=== PATIENT | female | born 1965 | race Caucasian/White ===

== ENCOUNTER 2019-09-02 08:55 | Inpatient (IN) | payer BC ==
[2019-09-02] MEDS: Lactated Ringers 1,000 ML IV SCH ×2 (08:40→14:07)
[~2019-09-02 08:55] MED LIST: Bisacodyl 5 MG Tab PO PRN; Famotidine 20 MG Tab PO SCH; Lactated Ringers 1,000 ML IV SCH; Lidocaine 1%/Sod Bicarbonate in NS 8.4% 1 ML Syringe IDERM PRN; Magnesium Hydroxide 400 MG/5 ML Susp 30 ML Cup PO PRN; Morphine 2 MG/ML SYRINGE IVPUSH PRN; Naloxone 0.4 MG/ML SDV IVPUSH PRN; Ondansetron 4 MG/2 ML SDV IVPUSH PRN; Sennosides 8.6 MG Tab PO PRN; Sodium Chloride 0.9% 10 ML Syringe FLUSH PRN
[2019-09-02] MEDS ORDERED: Morphine Sulfate 8 MG, EPINEPHrine 0.3 MG, Cefuroxime 750 MG, Ketorolac 30 MG, Sodium C... ONE ×5 (09:00)
--- NOTE | 2019-09-02 09:05 | PCM.CONS ---
H&P History of Present Illness - General Date of Service: 09/02/19 Admit Problem/Dx: Admission Diagnosis/Problem Admission Diagnosis/Problem Osteoarthritis of knee Source of Information: Patient, Old Records, Provider, RN, RN Notes Reviewed History Limitations: Reports: No Limitations - History of Present Illness Initial Comments - Free Text/Narative: Malorie Ulloa is a 53 yo female patient of Dr. Cho who is post-operative day 0 of right TKA. Hospital medicine was consulted for post-operative medical care of the following listed medical conditions. At this time she is resting comfortably in bed. Pain is controlled. She denies any chest pain, shortness of breath, palpitations, or vomiting. She is having mild nausea and nursing is working on this. She carries a history of: Depression, GERD, IBS, Endometriosis, HLD, HTN, Headaches, Polyarthralgia, Pre-Diabetic, Right pulmonary nodule, Vitamin D Deficiency, Positive MRSA screen, Chronic neck pain, RA, Obesity. She is a former smoker. She is a full code. Her primary care provider is Dr. Holder. - Related Data Allergies/Adverse Reactions: Allergies Allergy/AdvReac Type Severity Reaction Status Date / Time chlorhexidine AdvReac Rash Verified 09/02/19 09:37 iodine AdvReac Rash Verified 09/02/19 09:37 povidone-iodine AdvReac Rash Verified 09/02/19 09:37 [From Betadine] soap [From Betadine] AdvReac Rash Verified 09/02/19 09:37 Home Medications: Home Meds Cetirizine [ZyrTEC] 10 mg PO DAILY 06/14/15 [History] Cinnamon Bark [Cinnamon] 500 mg PO DAILY 06/14/15 [History] Cyclobenzaprine [Flexeril] 10 mg PO TID PRN 06/14/15 [History] FLUoxetine [PROzac] 20 mg PO DAILY 06/14/15 [History] Fluticasone Propionate [Flonase] 1 sprays NASBOTH DAILY 06/14/15 [History] Lisinopril [Prinivil] 10 mg PO DAILY 06/14/15 [History] [place]-3 Fatty Acids/Fish Oil [Cvs Fish Oil 1,000 mg Softgel] 1 each PO DAILY 06/14/15 [History] Cholecalciferol (Vitamin D3) [Vitamin D3] 2,000 unit PO DAILY 08/30/19 [History] Glucosam/Chondr/Collagn/Hyalur [Glucosamine & Chondroitin Cap] 1 cap PO DAILY 08/30/19 [History] Mupirocin Oint [Bactroban Oint] 1 dose TOP ASDIRECTED 08/30/19 [History] Pantoprazole Sodium [Protonix] 40 mg PO DAILY 08/30/19 [History] Turmeric Root Extract [Turmeric Curcumin] 1,000 mg PO DAILY 08/30/19 [History] Vitamin E 400 unit PO DAILY 08/30/19 [History] amLODIPine Besylate [Amlodipine Besylate] 5 mg PO BID 08/30/19 [History] cloNIDine HCL [Clonidine HCl] 0.5 mg PO DAILY 08/30/19 [History] metFORMIN [Glucophage] 500 mg PO BID 08/30/19 [History] traMADol [Ultram] 50 mg PO BEDTIME PRN 08/30/19 [History] Past Medical History HEENT History: Reports: Allergic Rhinitis, Impaired Vision, Sinusitis Cardiovascular History: Reports: High Cholesterol, Hypertension Respiratory History: Reports: SOB, Other (See Below) Other Respiratory History: right pulmonary nodule Gastrointestinal History: Reports: Colon Polyp, GERD, Irritable Bowel Syndrome Genitourinary History: Reports: Other (See Below) Other Genitourinary History: nephrolithiasis 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: , 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 (See Below) Other OB/BYN History: hot flashes, endometriosis, endometrial ablation Musculoskeletal History: Reports: Neck Pain, Chronic, RA, Other (See Below) Other Musculoskeletal History: right knee pain, polyarthralgia, ACL sprain, right knee hemarthosis Neurological History: Reports: Headaches, Chronic, Other (See Below) Other Neuro History: cervical spine herniated disc Psychiatric History: Reports: Depression Endocrine/Metabolic History: Reports: Obesity/BMI 30+, Vitamin D Deficiency Hematologic History: Reports: None Immunologic History: Reports: None Oncologic (Cancer) History: Reports: None Dermatologic History: Reports: Other (See Below) Other Dermatologic History: lipoma - Infectious Disease History Infectious Disease History: Reports: MRSA - Past Surgical History Head Surgeries/Procedures: Reports: None HEENT Surgical History: Reports: Naso-Sinus Surgery, Oral Surgery Cardiovascular Surgical History: Reports: None Respiratory Surgical History: Reports: None GI Surgical History: Reports: Appendectomy, Cholecystectomy, Colonoscopy, EGD Female Surgical History: Reports: Oophorectomy, Other (See Below) Other Female Surgeries/Procedures: removal right ovarian cyst, uterine fibroid removal Endocrine Surgical History: Reports: None Neurological Surgical History: Reports: None Musculoskeletal Surgical History: Reports: None Oncologic Surgical History: Reports: None Dermatological Surgical History: Reports: None Social & Family History - Tobacco Use Smoking Status *Q: Former Smoker Used Tobacco, but Quit: Yes Month/Year Tobacco Last Used: 2006 - Caffeine Use Caffeine Use: Reports: Coffee - Recreational Drug Use Recreational Drug Use: No H&P Review of Systems - Review of Systems: Review Of Systems: See Below General: Reports: No Symptoms. Denies: Fever, Chills HEENT: Reports: No Symptoms. Denies: Headaches, Sore Throat Pulmonary: Reports: No Symptoms. Denies: Shortness of Breath, Wheezing, Pleuritic Chest Pain, Cough, Sputum Cardiovascular: Reports: No Symptoms. Denies: Chest Pain, Palpitations, Dyspnea on Exertion Gastrointestinal: Reports: Nausea. Denies: Abdominal Pain, Constipation, Diarrhea, Vomiting Genitourinary: Reports: No Symptoms. Denies: Pain Musculoskeletal: Reports: Leg Pain Skin: Reports: No Symptoms. Denies: Cyanosis Psychiatric: Reports: No Symptoms. Denies: Confusion Neurological: Reports: Numbness, Tingling, Difficulty Walking, Gait Disturbance Hematologic/Lymphatic: Reports: No Symptoms, Easy Bleeding Immunologic: Reports: No Symptoms Exam - Exam Exam: See Below - Exam Quality Assessment: DVT Prophylaxis General: Alert, Oriented, Cooperative HEENT: Conjunctiva Clear, EACs Clear, Hearing Intact, Mucosa Moist & [place], Nares Patent, Posterior Pharynx Clear Neck: Supple, Trachea Midline Lungs: Clear to Auscultation, Normal Respiratory Effort Cardiovascular: Regular Rate, Regular Rhythm GI/Abdominal Exam: Normal Bowel Sounds, Soft, Non-Tender, No Distention (Female) Exam: Deferred Rectal (Female) Exam: Deferred Back Exam: Normal Inspection, Full Range of Motion Extremities: Normal Capillary Refill, Leg Pain, Limited Range of Motion, Other (Bandage in place on right leg. Bandage is dry and intact. Cooling pack in place. ) Peripheral Pulses: 2+: Radial (L), Radial (R), Dorsalis Pedis (L), Dorsalis Pedis (R) Skin: Warm, Dry, Intact Neurological: Cranial Nerves Intact (Grossly ) Neuro Extensive - Mental Status: Alert, Oriented x3, Normal Mood/Affect Sepsis Event Note - Focused Exam Date Exam was Performed: 09/02/19 Time Exam was Performed: 14:28 Consult PN Assessment/Plan POD#: 0 Procedures: Procedures ANTINUCLEAR ANTIBODIES (08/19/19) ASSAY GLUCOSE BLOOD QUANT (07/01/17) ASSAY OF BLOOD/URIC ACID (08/19/19) ASSAY OF FREE THYROXINE (06/22/17) ASSAY OF MAGNESIUM (06/22/17) ASSAY OF TROPONIN QUANT (06/22/17) ASSAY THYROID STIM HORMONE (07/14/18) BREAST TOMOSYNTHESIS BI (03/20/19) C-REACTIVE PROTEIN (06/22/17) CARDIOVASCULAR STRESS TEST (08/27/19) CCP ANTIBODY (08/19/19) COMP SCREEN MAMMOGRAM ADD-ON (03/10/15) COMPLETE CBC W/AUTO DIFF WBC (08/19/19) COMPREHEN METABOLIC PANEL (08/19/19) CT THORAX W/DYE (03/20/14) CULTURE SCREEN ONLY (12/23/15) EMERGENCY DEPT VISIT (06/14/15) GLYCOSYLATED HEMOGLOBIN TEST (08/10/19) HEPATITIS C AB TEST (09/08/16) HT MUSCLE IMAGE SPECT MULT (08/27/19) KNEE ARTHROSCOPY/SURGERY (08/04/15) KNEE ARTHROSCOPY/SURGERY (08/04/15) LIPID PANEL (01/19/19) METABOLIC PANEL TOTAL CA (08/10/19) MR-STAPH DNA AMP PROBE (07/29/15) MRI JNT OF LWR EXTRE W/O DYE (06/15/15) PROTHROMBIN TIME (08/19/19) RHEUMATOID FACTOR TEST QUAL (08/19/19) ROUTINE VENIPUNCTURE (08/10/19) SCR MAMMO BI INCL CAD (03/20/19) STREP A AG IA (12/23/15) THROMBOPLASTIN TIME PARTIAL (08/19/19) TTE W/DOPPLER COMPLETE (06/28/17) UR ALBUMIN SEMIQUANTITATIVE (11/28/17) URINALYSIS AUTO W/O SCOPE (08/19/19) URINALYSIS AUTO W/SCOPE (05/23/14) VITAMIN D 25 HYDROXY (08/10/19) X-RAY EXAM CHEST 2 VIEWS (08/19/19) X-RAY EXAM KNEE 4 OR MORE (06/14/15) (1) S/P total knee arthroplasty SNOMED Code(s): 7832645649393, 812477547, 9917731897960 Code(s): Z96.659 - PRESENCE OF UNSPECIFIED ARTIFICIAL KNEE JOINT Current Visit: Yes (2) Osteoarthritis SNOMED Code(s): 451162054 Code(s): M19.90 - UNSPECIFIED OSTEOARTHRITIS, UNSPECIFIED SITE Current Visit: Yes (3) Pre-diabetes SNOMED Code(s): 508206597 Code(s): R73.03 - PREDIABETES Current Visit: Yes (4) Chronic neck pain SNOMED Code(s): 9160566182816 Code(s): M54.2 - CERVICALGIA; G89.29 - OTHER CHRONIC PAIN Current Visit: Yes (5) Depression SNOMED Code(s): 76523832 Code(s): F32.9 - MAJOR DEPRESSIVE DISORDER, SINGLE EPISODE, UNSPECIFIED Current Visit: Yes (6) HLD (hyperlipidemia) SNOMED Code(s): 63516733 Code(s): E78.5 - HYPERLIPIDEMIA, UNSPECIFIED Current Visit: Yes (7) HTN (hypertension) SNOMED Code(s): 62920115 Code(s): I10 - ESSENTIAL (PRIMARY) HYPERTENSION Current Visit: Yes (8) Pulmonary nodule, right SNOMED Code(s): 721763966 Code(s): R91.1 - SOLITARY PULMONARY NODULE Current Visit: Yes (9) GERD (gastroesophageal reflux disease) SNOMED Code(s): 113712684 Code(s): K21.9 - GASTRO-ESOPHAGEAL REFLUX DISEASE WITHOUT ESOPHAGITIS Current Visit: Yes (10) IBS (irritable bowel syndrome) SNOMED Code(s): 59355832 Code(s): K58.9 - IRRITABLE BOWEL SYNDROME WITHOUT DIARRHEA Current Visit: Yes (11) Endometriosis SNOMED Code(s): 695809871 Code(s): N80.9 - ENDOMETRIOSIS, UNSPECIFIED Current Visit: Yes (12) Rheumatoid arthritis SNOMED Code(s): 58255261 Code(s): M06.9 - RHEUMATOID ARTHRITIS, UNSPECIFIED Current Visit: Yes (13) Polyarthralgia SNOMED Code(s): 98503140 Code(s): M25.50 - PAIN IN UNSPECIFIED JOINT Current Visit: Yes (14) Chronic headaches SNOMED Code(s): 344031472 Code(s): R51 - HEADACHE Current Visit: Yes (15) Obesity SNOMED Code(s): 135028014, 463078654 Code(s): E66.9 - OBESITY, UNSPECIFIED Current Visit: Yes (16) Vitamin D deficiency SNOMED Code(s): 03791045 Code(s): E55.9 - VITAMIN D DEFICIENCY, UNSPECIFIED Current Visit: Yes (17) Positive result for methicillin resistant Staphylococcus aureus (MRSA) screening SNOMED Code(s): 781188633 Code(s): Z22.322 - CARRIER OR SUSPECTED CARRIER OF METHICILLIN RESIS STAPH Priority: High Current Visit: Yes Problem List Initiated/Reviewed/Updated: Yes Plan: I/P: Acute: S/P right total knee arthroplasty - post-operative day 0 -DVT prophylaxis and pain management per primary care team -PT/OT -IS/RT -Monitor oxygen saturation -Titrate oxygen as needed -Home medications reviewed -Vital signs stable -Monitor labs -Pre-operative Hgb was 14.0 -Pre-operative GFR was >60 -Pre-operative BUN was 20 -Pre-operative A1C was 6.2% -Pre-operative echo showed EF of >70% Osteoarthritis of right knee -Pain management per primary care team Positive MRSA screen -Contact precautions Chronic: Depression GERD IBS Endometriosis HLD HTN Headaches Polyarthralgia Pre-Diabetic Right pulmonary nodule Vitamin D Deficiency Positive MRSA screen Chronic neck pain RA Obesity Plan: CM for discharge planning GI prophylaxis Home medications as indicated Other orders as listed above Routine AM labs She is a full code. Her PCP is Dr. Holder Thank you for allowing us to participate in the care of this patient!! Requesting Provider: Dr. Cho Date Consult Requested: 09/02/19 Patient History Reviewed: Yes Admission H&P Reviewed: Yes Notified Requestor: Yes
[2019-09-02] MEDS ORDERED: Vancomycin 1 GM SDV ONE (09:12)
[2019-09-02] MEDS ORDERED: Triamcinolone Acetonide 40 MG/ML 1 ML MDV ONE (09:12)
[2019-09-02] MEDS ORDERED: ceFAZolin 1 GM Vial ONE (09:12)
--- NOTE | 2019-09-02 09:43 | PCM.PREANE ---
Preanesthetic Assessment - Procedure Proposed Procedure: right total knee - Anesthesia/Transfusion/Family Hx Anesthesia History: Prior Anesthesia Without Reaction Family History of Anesthesia Reaction: No Transfusion History: No Prior Transfusion(s) - Review of Systems General: No Symptoms Pulmonary: No Symptoms Cardiovascular: No Symptoms Gastrointestinal: No Symptoms Neurological: No Symptoms Other: Reports: Diabetes (pre), Neck Pain (arthritis), Depression - Physical Assessment NPO Status Date: 09/01/19 NPO Status Time: 20:00 Vital Signs: Last Vital Signs Temp 98.3 F 09/02/19 08:59 Pulse 87 09/02/19 08:59 Resp 20 09/02/19 08:59 BP 136/86 09/02/19 08:59 Pulse Ox 95 09/02/19 08:59 Height: 5 ft 4 in Weight: 83.915 kg ASA Class: 2 Mental Status: Alert & Oriented x3 Airway Class: Mallampati = 1 Dentition: Reports: Normal Dentition, Missing Tooth/Teeth (2) Thyro-Mental Finger Breadths: 3 Mouth Opening Finger Breadths: 3 ROM/Head Extension: Full Lungs: Clear to Auscultation, Normal Respiratory Effort - Lab Values: Laboratory Last Values COVID-19 PCR Not detected (NOT DETECT) 08/29/19 11:09 MRSA (PCR) Positive H 08/21/19 13:43 - Allergies Allergies/Adverse Reactions: Allergies Allergy/AdvReac Type Severity Reaction Status Date / Time chlorhexidine AdvReac Rash Verified 09/02/19 09:37 iodine AdvReac Rash Verified 09/02/19 09:37 povidone-iodine AdvReac Rash Verified 09/02/19 09:37 [From Betadine] soap [From Betadine] AdvReac Rash Verified 09/02/19 09:37 - Blood Blood Available: No - Acknowledgements Anesthesia Type Planned: Spinal Pt an Appropriate Candidate for the Planned Anesthesia: Yes Alternatives and Risks of Anesthesia Discussed w Pt/Guardian: Yes Pt/Guardian Understands and Agrees with Anesthesia Plan: Yes PreAnesthesia Questionnaire HEENT History: Reports: Allergic Rhinitis, Impaired Vision, Sinusitis Cardiovascular History: Reports: High Cholesterol, Hypertension Respiratory History: Reports: SOB, Other (See Below) Other Respiratory History: right pulmonary nodule Gastrointestinal History: Reports: Colon Polyp, GERD, Irritable Bowel Syndrome Genitourinary History: Reports: Other (See Below) Other Genitourinary History: nephrolithiasis 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: , 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 (See 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) Other OB/BYN History: hot flashes, endometriosis, endometrial ablation Musculoskeletal History: Reports: Neck Pain, Chronic, RA, Other (See Below) Other Musculoskeletal History: right knee pain, polyarthralgia, ACL sprain, right knee hemarthosis Neurological History: Reports: Headaches, Chronic, Other (See Below) Other Neuro History: cervical spine herniated disc Psychiatric History: Reports: Depression Endocrine/Metabolic History: Reports: Obesity/BMI 30+, Vitamin D Deficiency Hematologic History: Reports: None Immunologic History: Reports: None Oncologic (Cancer) History: Reports: None Dermatologic History: Reports: Other (See Below) Other Dermatologic History: lipoma - Infectious Disease History Infectious Disease History: Reports: MRSA - Past Surgical History Head Surgeries/Procedures: Reports: None HEENT Surgical History: Reports: Naso-Sinus Surgery, Oral Surgery Cardiovascular Surgical History: Reports: None Respiratory Surgical History: Reports: None GI Surgical History: Reports: Appendectomy, Cholecystectomy, Colonoscopy, EGD Female Surgical History: Reports: Oophorectomy, Other (See Below) Other Female Surgeries/Procedures: removal right ovarian cyst, uterine fibroid removal Endocrine Surgical History: Reports: None Neurological Surgical History: Reports: None Musculoskeletal Surgical History: Reports: None Oncologic Surgical History: Reports: None Dermatological Surgical History: Reports: None - SUBSTANCE USE Smoking Status *Q: Former Smoker Tobacco Use Within Last Twelve Months: No Second Hand Smoke Exposure: No Days Per Week of Alcohol Use: 0 Recreational Drug Use History: No - HOME MEDS Home Medications: Home Meds Cetirizine [ZyrTEC] 10 mg PO DAILY 06/14/15 [History] Cinnamon Bark [Cinnamon] 500 mg PO DAILY 06/14/15 [History] Cyclobenzaprine [Flexeril] 10 mg PO TID PRN 06/14/15 [History] FLUoxetine [PROzac] 20 mg PO DAILY 06/14/15 [History] Fluticasone Propionate [Flonase] 1 sprays NASBOTH DAILY 06/14/15 [History] Lisinopril [Prinivil] 10 mg PO DAILY 06/14/15 [History] [place]-3 Fatty Acids/Fish Oil [Cvs Fish Oil 1,000 mg Softgel] 1 each PO DAILY 06/14/15 [History] Cholecalciferol (Vitamin D3) [Vitamin D3] 2,000 unit PO DAILY 08/30/19 [History] Glucosam/Chondr/Collagn/Hyalur [Glucosamine & Chondroitin Cap] 1 cap PO DAILY 08/30/19 [History] Mupirocin Oint [Bactroban Oint] 1 dose TOP ASDIRECTED 08/30/19 [History] Pantoprazole Sodium [Protonix] 40 mg PO DAILY 08/30/19 [History] Turmeric Root Extract [Turmeric Curcumin] 1,000 mg PO DAILY 08/30/19 [History] Vitamin E 400 unit PO DAILY 08/30/19 [History] amLODIPine Besylate [Amlodipine Besylate] 5 mg PO BID 08/30/19 [History] cloNIDine HCL [Clonidine HCl] 0.05 mg PO DAILY 08/30/19 [History] metFORMIN [Glucophage] 500 mg PO BID 08/30/19 [History] norethindrone ac-eth estradioL [Norethind-Eth Estrad 0.5-2.5] 1 tab PO DAILY 08/30/19 [History] traMADol [Ultram] 50 mg PO BEDTIME PRN 08/30/19 [History] - CURRENT (IN HOUSE) MEDS Current Meds: Current Medications Aspirin (Ecotrin) 325 mg PO BID MARCELLE Bisacodyl (Dulcolax) 5 mg PO DAILY PRN PRN Reason: Constipation Cyclobenzaprine HCl (Flexeril) 10 mg PO TID PRN PRN Reason: Spasms Famotidine (Pepcid) 20 mg PO Q12H [facility] Lactated Ringer's (Ringers, Lactated) 1,000 mls @ 125 mls/hr IV ASDIRECTED [facility] Stop: 09/02/19 23:00 Cefazolin Sodium/Dextrose 2 gm (/ Premix) 50 mls @ 100 mls/hr IV Q8H [facility] Stop: 09/02/19 23:29 Ketorolac Tromethamine (Toradol) 15 mg IVPUSH Q6H PRN PRN Reason: Pain Lidocaine/Sodium Bicarbonate (Buffered Lidocaine 1% In Ns 8.4%) 0.25 ml IDERM ONETIME PRN PRN Reason: Prior to IV Start Stop: 09/02/19 18:00 Magnesium Hydroxide (Milk Of Magnesia) 30 ml PO BID PRN PRN Reason: Constipation Morphine Sulfate (Morphine) 2 mg IVPUSH Q2H PRN PRN Reason: Breakthrough Pain Naloxone HCl (Narcan) 0.1 mg IVPUSH Q5M PRN PRN Reason: Oversedation Ondansetron HCl (Zofran) 4 mg IVPUSH Q6H PRN PRN Reason: Nausea/Vomiting Oxycodone/Acetaminophen (Percocet 325-5 Mg) 1 - 2 tab PO Q4H PRN PRN Reason: Pain Senna (Senna) 8.6 mg PO BID PRN PRN Reason: Constipation Sodium Chloride (Saline Flush) 10 ml FLUSH ASDIRECTED PRN PRN Reason: Keep Vein Open Stop: 09/02/19 18:00 Discontinued Medications Bupivacaine HCl (Sensorcaine-Mpf 0.25%) Confirm Administered Dose 40 ml .ROUTE .STK-MED ONE Stop: 09/02/19 09:13 Cefazolin Sodium (Ancef) Confirm Administered Dose 2 gm .ROUTE .STK-MED ONE Stop: 09/02/19 09:13 Morphine Sulfate 8 mg/Epinephrine HCl 0.3 mg/Cefuroxime Sodium 750 mg/Ketorolac Tromethamine 30 mg/Sodium Chloride 7.9 ml 0 mg .XX ONETIME ONE Stop: 09/02/19 09:01 Famotidine (Pepcid) 20 mg PO Q12H MARCELLE Lactated Ringer's (Ringers, Lactated) 1,000 mls @ 125 mls/hr IV ASDIRECTED MARCELLE Stop: 08/26/19 23:00 Lidocaine/Sodium Bicarbonate (Buffered Lidocaine 1% In Ns 8.4%) 0.25 ml IDERM ONETIME PRN PRN Reason: Prior to IV Start Stop: 08/26/19 18:00 Sodium Chloride (Saline Flush) 10 ml FLUSH ASDIRECTED PRN PRN Reason: Keep Vein Open Stop: 08/26/19 18:00 Tranexamic Acid (Cyklokapron) Confirm Administered Dose 1,000 mg .ROUTE .STK-MED ONE Stop: 09/02/19 09:13 Triamcinolone Acetonide (Kenalog-40) Confirm Administered Dose 120 mg .ROUTE .STK-MED ONE Stop: 09/02/19 09:13 Vancomycin HCl (Vancomycin) Confirm Administered Dose 1 gm .ROUTE .STK-MED ONE Stop: 09/02/19 09:13
[2019-09-02] MEDS ORDERED: Pregabalin 75 MG Cap PO STA (09:51)
[2019-09-02] MEDS ORDERED: Acetaminophen 325 MG Tab PO STA (09:52)
[2019-09-02] MEDS ORDERED: diphenhydrAMINE 50 MG/ML SDV ONE (09:52)
[2019-09-02] MEDS ORDERED: oxyCODONE ER 10 MG TAB.ER PO STA (09:52)
[2019-09-02] MEDS ORDERED: Vancomycin 1.5 GM in Sodium Chloride 0.9% 500 ML IV ONE (10:00)
[2019-09-02] MEDS ORDERED: fentaNYL 100 MCG/2 ML SDV ONE (10:11)
[2019-09-02] MEDS ORDERED: Midazolam 1 MG/ML 2 ML SDV ONE (10:11)
[2019-09-02] MEDS ORDERED: Propofol 200 MG/20 ML SDV ONE ×2 (10:11→11:39)
[2019-09-02] MEDS ORDERED: Pregabalin 25 MG Cap PO ONE ×2 (10:15)
[2019-09-02] MEDS ORDERED: Lactated Ringers 1,000 ML ONE (10:33)
[2019-09-02] MEDS ORDERED: ePHEDrine Sulfate/0.9% NaCl/Pf 25 MG/5 ML SYRINGE IV ONE (10:45)
[2019-09-02] MEDS: ceFAZolin 1 GM Vial ONE ×2 (11:47→11:54)
[2019-09-02] MEDS ORDERED: fentaNYL 100 MCG/2 ML SDV IVPUSH PRN (11:50)
[2019-09-02] MEDS ORDERED: HYDROmorphone 0.5 MG/0.5 ML Syringe IVPUSH PRN (11:50)
[2019-09-02] MEDS: Bupivacaine 0.25% 10 ML SDV ONE ×2 (11:53→11:55)
[2019-09-02] MEDS ORDERED: Ropivacaine 0.5% 5 MG/ML 30 ML SDV ONE (12:30)
--- NOTE | 2019-09-02 12:57 | PCM.POSTAN ---
POST ANESTHESIA ASSESSMENT - MENTAL STATUS Mental Status: Alert, Oriented - VITAL SIGNS Vital Signs: Last Vital Signs Temp 97.2 F 09/02/19 12:25 Pulse 87 09/02/19 08:59 Resp 15 09/02/19 12:30 BP 119/63 09/02/19 12:30 Pulse Ox 97 09/02/19 12:30 - RESPIRATORY Respiratory Status: Respiratory Rate WNL, Airway Patent, O2 Saturation Stable - CARDIOVASCULAR CV Status: Pulse Rate WNL, Blood Pressure Stable - GASTROINTESTINAL GI Status: No Symptoms - PAIN Pain Score: 0 (post SAB) - POST OP HYDRATION Hydration Status: Adequate & Stable
--- NOTE | 2019-09-02 12:59 | PCM.PRNOTE ---
- Free Text/Narrative Note: Postoperative regional pain control requested by surgeon. Pre-op Dx: Right knee osteoarthritis. Post-op Rx: Total Right knee arthroplasty. Procedure: Right Adductor canal block with U/S guidance Requesting physician: Dr. Peter Villar Risks and benefits discussed with the patient preoperatively including infection, bleeding, incomplete or failed block, possible nerve damage, local anesthetic toxicity. Permit signed. Patient after spinal anesthesia post surgery in PACU, stable , alert and awake. Time out performed. Right mid-thigh was prepped with Chloraprep x 1 and allowed to dry. Under aseptic technique, the right femoral artery and sartorius muscle were identified under ultrasound prior to needle insertion. 4" Stimuplex needle #22 G was inserted under US guidance. Under direct visualization of needle tip the injection of 0.5% Ropivacaine with 1:200k epinephrine, total of 30 mls in di vided doses, maintaining negative aspiration was completed without problems. No local anesthetic toxicity was noted. Patient is awake, stable and tolerated the procedure well. Time: 12:39 - 12:48 Please see attached U/S pictures.
[2019-09-02] MEDS ORDERED: Mupirocin Oint 22 GM Tube TOP SCH (13:00)
[2019-09-02] MEDS: Acetaminophen/oxyCODONE 325-5 MG Tab PO PRN ×2 (14:14→20:20)
--- NOTE | 2019-09-02 14:44 | CR ---
Right knee: AP and lateral views of the right knee were obtained. Comparison: Prior right knee study of 06/14/15. Right knee prosthesis is seen. Components are aligned. Underlying bony structures are intact. Soft tissue are noted from the surgical procedure. Impression: 1. Satisfactory postop radiographic appearance of recently placed right knee prosthesis. Diagnostic code #2 This report was dictated in MDT
[2019-09-02] MEDS: ceFAZolin 2 GM in Premix Bag 1 BAG IV SCH (19:00)
[2019-09-02] MEDS ORDERED: diphenhydrAMINE 25 MG Cap PO ONE (20:11)
[2019-09-02] MEDS: Ketorolac 15 MG/ML SDV IVPUSH PRN (20:20)
[2019-09-02] MEDS: amLODIPine 5 MG Tab PO SCH (20:20)
[2019-09-02] MEDS ORDERED: Famotidine 20 MG Tab PO SCH (21:00)
[2019-09-02] MEDS ORDERED: Nystatin Crm 30 GM Tube TOP SCH (21:36)
[2019-09-03] MEDS: ceFAZolin 2 GM in Premix Bag 1 BAG IV SCH ×2 (02:11→09:50)
[2019-09-03] MEDS: Cyclobenzaprine 10 MG Tab PO PRN ×2 (02:12→10:33)
[2019-09-03] MEDS: Acetaminophen/oxyCODONE 325-5 MG Tab PO PRN ×3 (02:12→10:32)
[2019-09-03] MEDS: Nystatin Topical Powder 15 GM Bottle TOP SCH ×2 (02:13→10:02)
[2019-09-03] MEDS: Ketorolac 15 MG/ML SDV IVPUSH PRN (06:11)
--- NOTE | 2019-09-03 07:09 | PCM.SURGPN ---
- General Info Date of Service: 09/03/19 POD#: 1 Functional Status: Reports: Pain Controlled, Tolerating Diet, Ambulating, Urinating, Incentive Spirometry, Other (The pt is doing very well. She has been ambulating in her room.) - Patient Data Vitals - Most Recent: Last Vital Signs Temp 97.9 F 09/03/19 06:15 Pulse 76 09/03/19 06:15 Resp 18 09/03/19 06:15 BP 121/82 09/03/19 06:15 Pulse Ox 95 09/03/19 06:15 Weight - Most Recent: 185 lb I&O - Last 24 Hours: Intake & Output 09/02/19 09/03/19 09/03/19 22:59 06:59 14:59 Intake Total 900 Output Total 1600 Balance -700 Lab Results Last 24 Hrs: Laboratory Results - last 24 hr 09/02/19 09/03/19 09/03/19 Range/Units 09:50 05:17 05:17 WBC 9.25 (3.98-10.04) K/mm3 RBC 3.59 L (3.98-5.22) M/mm3 Hgb 11.1 L D (11.2-15.7) gm/dl Hct 34.1 (34.1-44.9) % MCV 95.0 H (79.4-94.8) fl MCH 30.9 (25.6-32.2) pg MCHC 32.6 (32.2-35.5) g/dl RDW Std Deviation 44.7 (36.4-46.3) fL Plt Count 207 D (182-369) K/mm3 MPV 10.9 (9.4-12.3) fl Sodium 139 (136-145) mEq/L Potassium 3.9 (3.5-5.1) mEq/L Chloride 102 (98-107) mEq/L Carbon Dioxide 27 (21-32) mEq/L Anion Gap 13.9 (5-15) BUN 18 (7-18) mg/dL Creatinine 1.0 (0.55-1.02) mg/dL Est Cr Clr Drug Dosing 55.54 mL/min Estimated GFR (MDRD) 58 (>60) mL/min BUN/Creatinine Ratio 18.0 (14-18) Glucose 128 H (74-106) mg/dL POC Glucose 122 H (70-105) mg/dL Calcium 8.6 (8.5-10.1) mg/dL Total Bilirubin 0.2 (0.2-1.0) mg/dL AST 27 (15-37) U/L ALT 41 (14-59) U/L Alkaline Phosphatase 55 (46-116) U/L Total Protein 6.6 (6.4-8.2) g/dl Albumin 3.3 L (3.4-5.0) g/dl Globulin 3.3 gm/dL Albumin/Globulin Ratio 1.0 (1-2) Med Orders - Current: Current Medications Amlodipine Besylate (Norvasc) 5 mg PO BID [facility] Last Admin: 09/02/19 20:20 Dose: 5 mg Documented by: Aspirin (Ecotrin) 325 mg PO BID [facility] Bisacodyl (Dulcolax) 5 mg PO DAILY PRN PRN Reason: Constipation Cholecalciferol (Vitamin D3) 50 mcg PO DAILY [facility] Clonidine HCl (Catapres) 0.05 mg PO DAILY [facility] Cyclobenzaprine HCl (Flexeril) 10 mg PO TID PRN PRN Reason: Spasms Last Admin: 09/03/19 02:12 Dose: 10 mg Documented by: Famotidine (Pepcid) 20 mg PO Q12H [facility] Last Admin: 09/02/19 20:19 Dose: 20 mg Documented by: Fluoxetine HCl (Prozac) 20 mg PO DAILY [facility] Cefazolin Sodium/Dextrose 2 gm (/ Premix) 50 mls @ 100 mls/hr IV Q8H [facility] Stop: 09/03/19 10:59 Last Admin: 09/03/19 02:11 Dose: 100 mls/hr Documented by: Ketorolac Tromethamine (Toradol) 15 mg IVPUSH Q6H PRN PRN Reason: Pain Last Admin: 09/03/19 06:11 Dose: 15 mg Documented by: Loratadine (Claritin) 10 mg PO DAILY [facility] Magnesium Hydroxide (Milk Of Magnesia) 30 ml PO BID PRN PRN Reason: Constipation Morphine Sulfate (Morphine) 2 mg IVPUSH Q2H PRN PRN Reason: Breakthrough Pain Naloxone HCl (Narcan) 0.1 mg IVPUSH Q5M PRN PRN Reason: Oversedation Non-Formulary Medication (Fluticasone Propionate [Flonase]) 1 sprays NASBOTH DAILY [facility] Nystatin (Nystop) 0 gm TOP QID [facility] Last Admin: 09/03/19 02:13 Dose: 1 applic Documented by: Ondansetron HCl (Zofran) 4 mg IVPUSH Q6H PRN PRN Reason: Nausea/Vomiting Last Admin: 09/02/19 14:11 Dose: 4 mg Documented by: Oxycodone/Acetaminophen (Percocet 325-5 Mg) 1 - 2 tab PO Q4H PRN PRN Reason: Pain Last Admin: 09/03/19 06:10 Dose: 2 tab Documented by: Pantoprazole Sodium (Protonix) 40 mg PO DAILY [facility] Senna (Senna) 8.6 mg PO BID PRN PRN Reason: Constipation Discontinued Medications Acetaminophen (Tylenol) 975 mg PO NOW STA Stop: 09/02/19 09:53 Last Admin: 09/02/19 10:07 Dose: 975 mg Documented by: Bupivacaine HCl (Sensorcaine-Mpf 0.25%) Confirm Administered Dose 40 ml .ROUTE .STK-MED ONE Stop: 09/02/19 09:13 Last Admin: 09/02/19 11:55 Dose: 32 ml Documented by: Cefazolin Sodium (Ancef) Confirm Administered Dose 2 gm .ROUTE .STK-MED ONE Stop: 09/02/19 09:13 Cefazolin Sodium (Ancef) Confirm Administered Dose 2 gm .ROUTE .STK-MED ONE Stop: 09/02/19 10:16 Last Admin: 09/02/19 11:47 Dose: 2 gm Documented by: Morphine Sulfate 8 mg/Epinephrine HCl 0.3 mg/Cefuroxime Sodium 750 mg/Ketorolac Tromethamine 30 mg/Sodium Chloride 7.9 ml 0 mg .XX ONETIME ONE Stop: 09/02/19 09:01 Last Admin: 09/02/19 11:56 Dose: 788.3 mg Documented by: Diphenhydramine HCl (Benadryl) Confirm Administered Dose 50 mg .ROUTE .STK-MED ONE Stop: 09/02/19 09:53 Diphenhydramine HCl (Benadryl) 25 mg PO ONETIME ONE Stop: 09/02/19 20:12 Last Admin: 09/02/19 20:27 Dose: 25 mg Documented by: Ephedrine Sulfate (Ephedrine 25 Mg/5 Ml Syringe) Confirm Administered Dose 25 mg IV .STK-MED ONE Stop: 09/02/19 10:46 Famotidine (Pepcid) 20 mg PO Q12H [facility] Last Admin: 09/02/19 13:48 Dose: Not Given Documented by: Fentanyl (Sublimaze) Confirm Administered Dose 100 mcg .ROUTE .STK-MED ONE Stop: 09/02/19 10:12 Fentanyl (Sublimaze) 100 mcg IVPUSH ONETIME PRN PRN Reason: Pain Stop: 09/02/19 14:00 Hydromorphone HCl (Dilaudid) 0.5 mg IVPUSH ONETIME PRN PRN Reason: Pain (severe 7-10) Stop: 09/02/19 14:00 Lactated Ringer's (Ringers, Lactated) 1,000 mls @ 125 mls/hr IV ASDIRECTED [facility] Stop: 08/26/19 23:00 Lactated Ringer's (Ringers, Lactated) 1,000 mls @ 125 mls/hr IV ASDIRECTED [facility] Stop: 09/02/19 23:00 Last Admin: 09/02/19 14:07 Dose: 125 mls/hr Documented by: Vancomycin HCl 1.5 gm/ Sodium (Chloride) 500 mls @ 250 mls/hr IV ONETIME ONE Stop: 09/02/19 11:59 Last Admin: 09/02/19 10:13 Dose: 250 mls/hr Documented by: Lactated Ringer's (Ringers, Lactated) Confirm Administered Dose 1,000 mls @ as directed .ROUTE .STK-MED ONE Stop: 09/02/19 10:34 Lidocaine/Sodium Bicarbonate (Buffered Lidocaine 1% In Ns 8.4%) 0.25 ml IDERM ONETIME PRN PRN Reason: Prior to IV Start Stop: 08/26/19 18:00 Lidocaine/Sodium Bicarbonate (Buffered Lidocaine 1% In Ns 8.4%) 0.25 ml IDERM ONETIME PRN PRN Reason: Prior to IV Start Stop: 09/02/19 18:00 Last Admin: 09/02/19 08:40 Dose: 0.25 ml Documented by: Lisinopril (Prinivil) 10 mg PO DAILY [facility] Midazolam HCl (Versed 1 Mg/Ml) Confirm Administered Dose 2 mg .ROUTE .STK-MED ONE Stop: 09/02/19 10:12 Mupirocin (Bactroban Oint) gm TOP ASDIRECTED [facility] Nystatin (Nystatin Crm) 0 gm TOP TID [facility] Last Admin: 09/02/19 21:47 Dose: Not Given Documented by: Oxycodone HCl (Oxycontin) 10 mg PO ONETIME STA Stop: 09/02/19 09:53 Last Admin: 09/02/19 10:07 Dose: 10 mg Documented by: Pregabalin (Lyrica) 50 mg PO ONETIME STA Stop: 09/02/19 09:52 Last Admin: 09/02/19 14:15 Dose: Not Given Documented by: Pregabalin (Lyrica) 75 mg PO ONETIME ONE Stop: 09/02/19 10:16 Pregabalin (Lyrica) 50 mg PO ONETIME ONE Stop: 09/02/19 10:16 Last Admin: 09/02/19 10:07 Dose: 50 mg Documented by: Propofol (Diprivan 20 Ml) Confirm Administered Dose 600 mg .ROUTE .STK-MED ONE Stop: 09/02/19 10:12 Propofol (Diprivan 20 Ml) Confirm Administered Dose 200 mg .ROUTE .STK-MED ONE Stop: 09/02/19 11:40 Ropivacaine (Naropin 0.5%) Confirm Administered Dose 30 ml .ROUTE .STK-MED ONE Stop: 09/02/19 12:31 Sodium Chloride (Saline Flush) 10 ml FLUSH ASDIRECTED PRN PRN Reason: Keep Vein Open Stop: 08/26/19 18:00 Sodium Chloride (Saline Flush) 10 ml FLUSH ASDIRECTED PRN PRN Reason: Keep Vein Open Stop: 09/02/19 18:00 Tranexamic Acid (Cyklokapron) Confirm Administered Dose 1,000 mg .ROUTE .STK-MED ONE Stop: 09/02/19 09:13 Last Admin: 09/02/19 11:58 Dose: 1,000 mg Documented by: Triamcinolone Acetonide (Kenalog-40) Confirm Administered Dose 120 mg .ROUTE .STK-MED ONE Stop: 09/02/19 09:13 Vancomycin HCl (Vancomycin) Confirm Administered Dose 1 gm .ROUTE .STK-MED ONE Stop: 09/02/19 09:13 Last Admin: 09/02/19 11:57 Dose: 1 gm Documented by: - Exam Wound/Incisions: Dressing Dry and Intact General: Alert, Cooperative, No Acute Distress Lungs: Normal Respiratory Effort Extremities: Other (NVS intact for RLE. Debbie's negative.) Sepsis Event Note - Evaluation Sepsis Screening Result: No Definite Risk - Focused Exam Vital Signs: Vital Signs Temp Pulse Resp BP Pulse Ox 09/03/19 06:15 97.9 F 76 18 121/82 95 09/03/19 02:19 98.1 F 92 18 135/97 H 100 09/02/19 20:20 133/73 09/02/19 20:17 88 16 133/73 100 Date Exam was Performed: 09/03/19 Time Exam was Performed: 07:07 - Problem List Review Problem List Initiated/Reviewed/Updated: Yes - My Orders Last 24 Hours: Active Orders 24 hr Category Date Time Status Patient Status [ADT] Routine ADT 09/02/19 06:48 Active Ambulate [RC] PER UNIT ROUTINE Care 09/02/19 06:48 Active Antiembolic Devices [RC] BID Care 09/02/19 06:49 Active Cooling Warming Measures [RC] ASDIRECTED Care 09/02/19 11:50 Active May Shower [RC] ASDIRECTED Care 09/02/19 06:48 Active Notify Provider Consults [RC] ASDIRECTED Care 09/02/19 06:50 Active Oxygen Therapy [RC] PRN Care 09/02/19 06:48 Active Pulse Oximetry [RC] ASDIRECTED Care 09/02/19 11:50 Active RT Incentive Spirometry [RC] Q1HWA Care 09/02/19 06:48 Active Ready for Discharge [RC] PER UNIT ROUTINE Care 09/03/19 07:03 Ordered Up to Chair [RC] ASDIRECTED Care 09/02/19 06:48 Active Vital Signs [RC] Q4HR Care 09/02/19 06:48 Active Consult to Physician [CONS] Routine Cons 09/02/19 06:48 Active OT Evaluation and Treatment [CONS] Routine Cons 09/02/19 06:48 Active PT Evaluation and Treatment [CONS] Routine Cons 09/02/19 06:48 Active Regular Diet [DIET] Diet 09/02/19 Lunch Active Acetaminophen/oxyCODONE [Percocet 325-5 MG] Med 09/02/19 06:48 Active 1 - 2 tab PO Q4H PRN Aspirin [Ecotrin] Med 09/03/19 09:00 Active 325 mg PO BID Cholecalciferol (Vitamin D3) [Vitamin D3] Med 09/03/19 09:00 Active 50 mcg PO DAILY Cyclobenzaprine [Flexeril] Med 09/02/19 06:48 Active 10 mg PO TID PRN FLUoxetine [PROzac] Med 09/03/19 09:00 Active 20 mg PO DAILY Famotidine [Pepcid] Med 09/02/19 21:00 Active 20 mg PO Q12H Fluticasone Propionate [Flonase] Med 09/03/19 09:00 Pending 1 sprays NASBOTH DAILY Ketorolac [Toradol] Med 09/02/19 15:00 Active 15 mg IVPUSH Q6H PRN Loratadine [Claritin] Med 09/03/19 09:00 Active 10 mg PO DAILY Magnesium Hydroxide [Milk of Magnesia] Med 09/02/19 06:48 Active 30 ml PO BID PRN Morphine Med 09/02/19 06:48 Active 2 mg IVPUSH Q2H PRN Naloxone [Narcan] Med 09/02/19 06:48 Active 0.1 mg IVPUSH Q5M PRN Nystatin [Nystop] Med 09/02/19 22:00 Active 0 gm TOP QID Ondansetron [Zofran] Med 09/02/19 06:48 Active 4 mg IVPUSH Q6H PRN Pantoprazole [ProTONIX] Med 09/03/19 09:00 Active 40 mg PO DAILY Sennosides [Senna] Med 09/02/19 06:48 Active 8.6 mg PO BID PRN amLODIPine [Norvasc] Med 09/02/19 21:00 Active 5 mg PO BID bisacodyL [Dulcolax] Med 09/02/19 06:48 Active 5 mg PO DAILY PRN ceFAZolin [Ancef] 2 gm Med 09/02/19 18:30 Active Premix Bag 1 bag IV Q8H cloNIDine [Catapres] Med 09/03/19 09:00 Active 0.05 mg PO DAILY Antiembolic Hose [OM.PC] Routine Oth 09/02/19 06:48 Ordered Ice Therapy [OM.PC] Per Unit Routine Oth 09/02/19 06:49 Ordered Isolation [COMM] Routine Oth 09/02/19 14:33 Ordered Medication Administration Instruction [OM.PC] Routine Oth 09/02/19 07:00 Ordered Peripheral IV Insertion Adult [OM.PC] Routine Oth 09/02/19 07:00 Ordered Sequential Compression Device [OM.PC] Per Unit Routine Oth 09/02/19 06:48 Ordered Resuscitation Status Routine Resus Stat 09/02/19 06:48 Ordered Medication Orders Amlodipine Besylate (Norvasc) 5 mg PO BID [facility] Last Admin: 09/02/19 20:20 Dose: 5 mg Documented by: DEDRA Aspirin (Ecotrin) 325 mg PO BID [facility] Bisacodyl (Dulcolax) 5 mg PO DAILY PRN PRN Reason: Constipation Cholecalciferol (Vitamin D3) 50 mcg PO DAILY [facility] Clonidine HCl (Catapres) 0.05 mg PO DAILY [facility] Cyclobenzaprine HCl (Flexeril) 10 mg PO TID PRN PRN Reason: Spasms Last Admin: 09/03/19 02:12 Dose: 10 mg Documented by: ZEINAB Famotidine (Pepcid) 20 mg PO Q12H [facility] Last Admin: 09/02/19 20:19 Dose: 20 mg Documented by: DEDRA Fluoxetine HCl (Prozac) 20 mg PO DAILY [facility] Cefazolin Sodium/Dextrose 2 gm (/ Premix) 50 mls @ 100 mls/hr IV Q8H [facility] Stop: 09/03/19 10:59 Last Admin: 09/03/19 02:11 Dose: 100 mls/hr Documented by: Infusion: 09/02/19 19:30 Dose: 100 mls/hr Documented by: Admin: 09/02/19 19:00 Dose: 100 mls/hr Documented by: EASPARKLE Ketorolac Tromethamine (Toradol) 15 mg IVPUSH Q6H PRN PRN Reason: Pain Last Admin: 09/03/19 06:11 Dose: 15 mg Documented by: Admin: 09/02/19 20:20 Dose: 15 mg Documented by: DEDRA Loratadine (Claritin) 10 mg PO DAILY [facility] Magnesium Hydroxide (Milk Of Magnesia) 30 ml PO BID PRN PRN Reason: Constipation Morphine Sulfate (Morphine) 2 mg IVPUSH Q2H PRN PRN Reason: Breakthrough Pain Naloxone HCl (Narcan) 0.1 mg IVPUSH Q5M PRN PRN Reason: Oversedation Non-Formulary Medication (Fluticasone Propionate [Flonase]) 1 sprays NASBOTH DAILY [facility] Nystatin (Nystop) 0 gm TOP QID [facility] Last Admin: 09/03/19 02:13 Dose: 1 applic Documented by: ZEINAB Ondansetron HCl (Zofran) 4 mg IVPUSH Q6H PRN PRN Reason: Nausea/Vomiting Last Admin: 09/02/19 14:11 Dose: 4 mg Documented by: PROEASPARKLE Oxycodone/Acetaminophen (Percocet 325-5 Mg) 1 - 2 tab PO Q4H PRN PRN Reason: Pain Last Admin: 09/03/19 06:10 Dose: 2 tab Documented by: Admin: 09/03/19 02:12 Dose: 2 tab Documented by: Admin: 09/02/19 20:20 Dose: 2 tab Documented by: Admin: 09/02/19 14:14 Dose: 1 tab Documented by: PROEAMA Pantoprazole Sodium (Protonix) 40 mg PO DAILY [facility] Senna (Senna) 8.6 mg PO BID PRN PRN Reason: Constipation - Assessment Assessment (Free Text/Narrative):: POD#1 - right TKA with left 1st MTP injection - Plan Plan (Free Text/Narrative):: 1. The pt is doing very well. Discharge to home if cleared by Hospitalist service and therapies. 2. Hgb 11.1. 3. 325mg ASA PO BID, frequent mobility, TEDs for VTE prophylaxis. 4. Outpatient therapy. The pt's case was discussed with Dr. Cho.
--- NOTE | 2019-09-03 07:31 | PCM.CONSN ---
- General Info Date of Service: 09/03/19 Admission Dx/Problem (Free Text): Admission Diagnosis/Problem Admission Diagnosis/Problem Osteoarthritis of knee Functional Status: Reports: Pain Controlled, Tolerating Diet, Ambulating, Urinating, Incentive Spirometry. Denies: New Symptoms - Review of Systems General: Reports: No Symptoms. Denies: Fever, Chills HEENT: Reports: No Symptoms. Denies: Headaches, Sore Throat Pulmonary: Reports: No Symptoms. Denies: Shortness of Breath, Pleuritic Chest Pain, Cough, Sputum, Wheezing Cardiovascular: Reports: No Symptoms. Denies: Chest Pain, Palpitations, Dyspnea on Exertion Gastrointestinal: Reports: No Symptoms. Denies: Abdominal Pain, Constipation, Diarrhea, Nausea, Vomiting Genitourinary: Reports: No Symptoms. Denies: Pain Musculoskeletal: Reports: Leg Pain Skin: Reports: No Symptoms. Denies: Cyanosis Neurological: Reports: Difficulty Walking, Gait Disturbance. Denies: Confusion Psychiatric: Reports: No Symptoms - Patient Data Vitals - Most Recent: Last Vital Signs Temp 97.9 F 09/03/19 06:15 Pulse 76 09/03/19 06:15 Resp 18 09/03/19 06:15 BP 121/82 09/03/19 06:15 Pulse Ox 95 09/03/19 06:15 Weight - Most Recent: 185 lb I&O - Last 24 Hours: Intake & Output 09/02/19 09/03/19 09/03/19 22:59 06:59 14:59 Intake Total 900 Output Total 1600 Balance -700 Lab Results Last 24 Hours: Laboratory Results - last 24 hr 09/02/19 09/03/19 09/03/19 Range/Units 09:50 05:17 05:17 WBC 9.25 (3.98-10.04) K/mm3 RBC 3.59 L (3.98-5.22) M/mm3 Hgb 11.1 L D (11.2-15.7) gm/dl Hct 34.1 (34.1-44.9) % MCV 95.0 H (79.4-94.8) fl MCH 30.9 (25.6-32.2) pg MCHC 32.6 (32.2-35.5) g/dl RDW Std Deviation 44.7 (36.4-46.3) fL Plt Count 207 D (182-369) K/mm3 MPV 10.9 (9.4-12.3) fl Sodium 139 (136-145) mEq/L Potassium 3.9 (3.5-5.1) mEq/L Chloride 102 (98-107) mEq/L Carbon Dioxide 27 (21-32) mEq/L Anion Gap 13.9 (5-15) BUN 18 (7-18) mg/dL Creatinine 1.0 (0.55-1.02) mg/dL Est Cr Clr Drug Dosing 55.54 mL/min Estimated GFR (MDRD) 58 (>60) mL/min BUN/Creatinine Ratio 18.0 (14-18) Glucose 128 H (74-106) mg/dL POC Glucose 122 H (70-105) mg/dL Calcium 8.6 (8.5-10.1) mg/dL Total Bilirubin 0.2 (0.2-1.0) mg/dL AST 27 (15-37) U/L ALT 41 (14-59) U/L Alkaline Phosphatase 55 (46-116) U/L Total Protein 6.6 (6.4-8.2) g/dl Albumin 3.3 L (3.4-5.0) g/dl Globulin 3.3 gm/dL Albumin/Globulin Ratio 1.0 (1-2) Med Orders - Current: Current Medications Amlodipine Besylate (Norvasc) 5 mg PO BID [facility] Last Admin: 09/02/19 20:20 Dose: 5 mg Documented by: Aspirin (Ecotrin) 325 mg PO BID [facility] Bisacodyl (Dulcolax) 5 mg PO DAILY PRN PRN Reason: Constipation Cholecalciferol (Vitamin D3) 50 mcg PO DAILY [facility] Clonidine HCl (Catapres) 0.05 mg PO DAILY [facility] Cyclobenzaprine HCl (Flexeril) 10 mg PO TID PRN PRN Reason: Spasms Last Admin: 09/03/19 02:12 Dose: 10 mg Documented by: Famotidine (Pepcid) 20 mg PO Q12H [facility] Last Admin: 09/02/19 20:19 Dose: 20 mg Documented by: Fluoxetine HCl (Prozac) 20 mg PO DAILY [facility] Cefazolin Sodium/Dextrose 2 gm (/ Premix) 50 mls @ 100 mls/hr IV Q8H [facility] Stop: 09/03/19 10:59 Last Admin: 09/03/19 02:11 Dose: 100 mls/hr Documented by: Ketorolac Tromethamine (Toradol) 15 mg IVPUSH Q6H PRN PRN Reason: Pain Last Admin: 09/03/19 06:11 Dose: 15 mg Documented by: Loratadine (Claritin) 10 mg PO DAILY [facility] Magnesium Hydroxide (Milk Of Magnesia) 30 ml PO BID PRN PRN Reason: Constipation Morphine Sulfate (Morphine) 2 mg IVPUSH Q2H PRN PRN Reason: Breakthrough Pain Naloxone HCl (Narcan) 0.1 mg IVPUSH Q5M PRN PRN Reason: Oversedation Non-Formulary Medication (Fluticasone Propionate [Flonase]) 1 sprays NASBOTH DAILY [facility] Nystatin (Nystop) 0 gm TOP QID [facility] Last Admin: 09/03/19 02:13 Dose: 1 applic Documented by: Ondansetron HCl (Zofran) 4 mg IVPUSH Q6H PRN PRN Reason: Nausea/Vomiting Last Admin: 09/02/19 14:11 Dose: 4 mg Documented by: Oxycodone/Acetaminophen (Percocet 325-5 Mg) 1 - 2 tab PO Q4H PRN PRN Reason: Pain Last Admin: 09/03/19 06:10 Dose: 2 tab Documented by: Pantoprazole Sodium (Protonix) 40 mg PO DAILY [facility] Senna (Senna) 8.6 mg PO BID PRN PRN Reason: Constipation Discontinued Medications Acetaminophen (Tylenol) 975 mg PO NOW STA Stop: 09/02/19 09:53 Last Admin: 09/02/19 10:07 Dose: 975 mg Documented by: Bupivacaine HCl (Sensorcaine-Mpf 0.25%) Confirm Administered Dose 40 ml .ROUTE .STK-MED ONE Stop: 09/02/19 09:13 Last Admin: 09/02/19 11:55 Dose: 32 ml Documented by: Cefazolin Sodium (Ancef) Confirm Administered Dose 2 gm .ROUTE .STK-MED ONE Stop: 09/02/19 09:13 Cefazolin Sodium (Ancef) Confirm Administered Dose 2 gm .ROUTE .STK-MED ONE Stop: 09/02/19 10:16 Last Admin: 09/02/19 11:47 Dose: 2 gm Documented by: Morphine Sulfate 8 mg/Epinephrine HCl 0.3 mg/Cefuroxime Sodium 750 mg/Ketorolac Tromethamine 30 mg/Sodium Chloride 7.9 ml 0 mg .XX ONETIME ONE Stop: 09/02/19 09:01 Last Admin: 09/02/19 11:56 Dose: 788.3 mg Documented by: Diphenhydramine HCl (Benadryl) Confirm Administered Dose 50 mg .ROUTE .STK-MED ONE Stop: 09/02/19 09:53 Diphenhydramine HCl (Benadryl) 25 mg PO ONETIME ONE Stop: 09/02/19 20:12 Last Admin: 09/02/19 20:27 Dose: 25 mg Documented by: Ephedrine Sulfate (Ephedrine 25 Mg/5 Ml Syringe) Confirm Administered Dose 25 mg IV .STK-MED ONE Stop: 09/02/19 10:46 Famotidine (Pepcid) 20 mg PO Q12H [facility] Last Admin: 09/02/19 13:48 Dose: Not Given Documented by: Fentanyl (Sublimaze) Confirm Administered Dose 100 mcg .ROUTE .STK-MED ONE Stop: 09/02/19 10:12 Fentanyl (Sublimaze) 100 mcg IVPUSH ONETIME PRN PRN Reason: Pain Stop: 09/02/19 14:00 Hydromorphone HCl (Dilaudid) 0.5 mg IVPUSH ONETIME PRN PRN Reason: Pain (severe 7-10) Stop: 09/02/19 14:00 Lactated Ringer's (Ringers, Lactated) 1,000 mls @ 125 mls/hr IV ASDIRECTED [facility] Stop: 08/26/19 23:00 Lactated Ringer's (Ringers, Lactated) 1,000 mls @ 125 mls/hr IV ASDIRECTED [facility] Stop: 09/02/19 23:00 Last Admin: 09/02/19 14:07 Dose: 125 mls/hr Documented by: Vancomycin HCl 1.5 gm/ Sodium (Chloride) 500 mls @ 250 mls/hr IV ONETIME ONE Stop: 09/02/19 11:59 Last Admin: 09/02/19 10:13 Dose: 250 mls/hr Documented by: Lactated Ringer's (Ringers, Lactated) Confirm Administered Dose 1,000 mls @ as directed .ROUTE .STK-MED ONE Stop: 09/02/19 10:34 Lidocaine/Sodium Bicarbonate (Buffered Lidocaine 1% In Ns 8.4%) 0.25 ml IDERM ONETIME PRN PRN Reason: Prior to IV Start Stop: 08/26/19 18:00 Lidocaine/Sodium Bicarbonate (Buffered Lidocaine 1% In Ns 8.4%) 0.25 ml IDERM ONETIME PRN PRN Reason: Prior to IV Start Stop: 09/02/19 18:00 Last Admin: 09/02/19 08:40 Dose: 0.25 ml Documented by: Lisinopril (Prinivil) 10 mg PO DAILY [facility] Midazolam HCl (Versed 1 Mg/Ml) Confirm Administered Dose 2 mg .ROUTE .STK-MED ONE Stop: 09/02/19 10:12 Mupirocin (Bactroban Oint) gm TOP ASDIRECTED [facility] Nystatin (Nystatin Crm) 0 gm TOP TID [facility] Last Admin: 09/02/19 21:47 Dose: Not Given Documented by: Oxycodone HCl (Oxycontin) 10 mg PO ONETIME STA Stop: 09/02/19 09:53 Last Admin: 09/02/19 10:07 Dose: 10 mg Documented by: Pregabalin (Lyrica) 50 mg PO ONETIME STA Stop: 09/02/19 09:52 Last Admin: 09/02/19 14:15 Dose: Not Given Documented by: Pregabalin (Lyrica) 75 mg PO ONETIME ONE Stop: 09/02/19 10:16 Pregabalin (Lyrica) 50 mg PO ONETIME ONE Stop: 09/02/19 10:16 Last Admin: 09/02/19 10:07 Dose: 50 mg Documented by: Propofol (Diprivan 20 Ml) Confirm Administered Dose 600 mg .ROUTE .STK-MED ONE Stop: 09/02/19 10:12 Propofol (Diprivan 20 Ml) Confirm Administered Dose 200 mg .ROUTE .STK-MED ONE Stop: 09/02/19 11:40 Ropivacaine (Naropin 0.5%) Confirm Administered Dose 30 ml .ROUTE .STK-MED ONE Stop: 09/02/19 12:31 Sodium Chloride (Saline Flush) 10 ml FLUSH ASDIRECTED PRN PRN Reason: Keep Vein Open Stop: 08/26/19 18:00 Sodium Chloride (Saline Flush) 10 ml FLUSH ASDIRECTED PRN PRN Reason: Keep Vein Open Stop: 09/02/19 18:00 Tranexamic Acid (Cyklokapron) Confirm Administered Dose 1,000 mg .ROUTE .STK-MED ONE Stop: 09/02/19 09:13 Last Admin: 09/02/19 11:58 Dose: 1,000 mg Documented by: Triamcinolone Acetonide (Kenalog-40) Confirm Administered Dose 120 mg .ROUTE .STK-MED ONE Stop: 09/02/19 09:13 Vancomycin HCl (Vancomycin) Confirm Administered Dose 1 gm .ROUTE .STK-MED ONE Stop: 09/02/19 09:13 Last Admin: 09/02/19 11:57 Dose: 1 gm Documented by: - Exam Quality Assessment: DVT Prophylaxis. No: Supplemental Oxygen, Urine Catheter General: Alert, Oriented, Cooperative, No Acute Distress HEENT: Pupils Equal, Pupils Reactive, Mucous Membr. Moist/[place] Neck: Supple, Trachea Midline Lungs: Clear to Auscultation, Normal Respiratory Effort Cardiovascular: Regular Rate, Regular Rhythm GI/Abdominal Exam: Normal Bowel Sounds, Soft, Non-Tender, No Distention (Female) Exam: Deferred Back Exam: Normal Inspection, Full Range of Motion Extremities: Normal Capillary Refill, Leg Pain, Limited Range of Motion, Other (Bandage in place on right leg. Cooling pack in place. ) Peripheral Pulses: 2+: Radial (L), Radial (R), Dorsalis Pedis (L), Dorsalis Pedis (R) Skin: Warm, Dry, Intact Wound/Incisions: Dressing Dry and Intact Neurological: No New Focal Deficit Psy/Mental Status: Alert, Normal Affect, Normal Mood Sepsis Event Note - Evaluation Sepsis Screening Result: No Definite Risk - Focused Exam Vital Signs: Vital Signs Temp Pulse Resp BP Pulse Ox 09/03/19 06:15 97.9 F 76 18 121/82 95 09/03/19 02:19 98.1 F 92 18 135/97 H 100 09/02/19 20:20 133/73 09/02/19 20:17 88 16 133/73 100 Date Exam was Performed: 09/03/19 Time Exam was Performed: 09:30 Consult PN Assessment/Plan POD#: 1 Procedures: Procedures ANTINUCLEAR ANTIBODIES (08/19/19) ASSAY GLUCOSE BLOOD QUANT (07/01/17) ASSAY OF BLOOD/URIC ACID (08/19/19) ASSAY OF FREE THYROXINE (06/22/17) ASSAY OF MAGNESIUM (06/22/17) ASSAY OF TROPONIN QUANT (06/22/17) ASSAY THYROID STIM HORMONE (07/14/18) BREAST TOMOSYNTHESIS BI (03/20/19) C-REACTIVE PROTEIN (06/22/17) CARDIOVASCULAR STRESS TEST (08/27/19) CCP ANTIBODY (08/19/19) COMP SCREEN MAMMOGRAM ADD-ON (03/10/15) COMPLETE CBC W/AUTO DIFF WBC (08/19/19) COMPREHEN METABOLIC PANEL (08/19/19) CT THORAX W/DYE (03/20/14) CULTURE SCREEN ONLY (12/23/15) EMERGENCY DEPT VISIT (06/14/15) GLYCOSYLATED HEMOGLOBIN TEST (08/10/19) HEPATITIS C AB TEST (09/08/16) HT MUSCLE IMAGE SPECT MULT (08/27/19) KNEE ARTHROSCOPY/SURGERY (08/04/15) KNEE ARTHROSCOPY/SURGERY (08/04/15) LIPID PANEL (01/19/19) METABOLIC PANEL TOTAL CA (08/10/19) MR-STAPH DNA AMP PROBE (07/29/15) MRI JNT OF LWR EXTRE W/O DYE (06/15/15) PROTHROMBIN TIME (08/19/19) RHEUMATOID FACTOR TEST QUAL (08/19/19) ROUTINE VENIPUNCTURE (08/10/19) SCR MAMMO BI INCL CAD (03/20/19) STREP A AG IA (12/23/15) THROMBOPLASTIN TIME PARTIAL (08/19/19) TTE W/DOPPLER COMPLETE (06/28/17) UR ALBUMIN SEMIQUANTITATIVE (11/28/17) URINALYSIS AUTO W/O SCOPE (08/19/19) URINALYSIS AUTO W/SCOPE (05/23/14) VITAMIN D 25 HYDROXY (08/10/19) X-RAY EXAM CHEST 2 VIEWS (08/19/19) X-RAY EXAM KNEE 4 OR MORE (06/14/15) (1) S/P total knee arthroplasty SNOMED Code(s): 9660970899416, 540378368, 5003402179589 Code(s): Z96.659 - PRESENCE OF UNSPECIFIED ARTIFICIAL KNEE JOINT Priority: High Current Visit: Yes Qualifiers: Laterality: right Qualified Code(s): Z96.651 - Presence of right artificial knee joint (2) Osteoarthritis SNOMED Code(s): 818167841 Code(s): M19.90 - UNSPECIFIED OSTEOARTHRITIS, UNSPECIFIED SITE Priority: High Current Visit: Yes Qualifiers: Osteoarthritis location: knee Osteoarthritis type: primary Laterality: right Qualified Code(s): M17.11 - Unilateral primary osteoarthritis, right knee (3) Pre-diabetes SNOMED Code(s): 336362615 Code(s): R73.03 - PREDIABETES Priority: Medium Current Visit: No (4) Chronic neck pain SNOMED Code(s): 3882121215824 Code(s): M54.2 - CERVICALGIA; G89.29 - OTHER CHRONIC PAIN Priority: Low Current Visit: No (5) Depression SNOMED Code(s): 24495364 Code(s): F32.9 - MAJOR DEPRESSIVE DISORDER, SINGLE EPISODE, UNSPECIFIED Priority: Low Current Visit: No Qualifiers: Depression Type: other depression Qualified Code(s): F32.89 - Other specified depressive episodes (6) HLD (hyperlipidemia) SNOMED Code(s): 51116254 Code(s): E78.5 - HYPERLIPIDEMIA, UNSPECIFIED Priority: Low Current Visit: No Qualifiers: Hyperlipidemia type: unspecified Qualified Code(s): E78.5 - Hyperlipidemia, unspecified (7) HTN (hypertension) SNOMED Code(s): 89038217 Code(s): I10 - ESSENTIAL (PRIMARY) HYPERTENSION Priority: Medium Current Visit: No Qualifiers: Hypertension type: unspecified Qualified Code(s): I10 - Essential (primary) hypertension (8) Pulmonary nodule, right SNOMED Code(s): 179933533 Code(s): R91.1 - SOLITARY PULMONARY NODULE Priority: Low Current Visit: No (9) GERD (gastroesophageal reflux disease) SNOMED Code(s): 556629420 Code(s): K21.9 - GASTRO-ESOPHAGEAL REFLUX DISEASE WITHOUT ESOPHAGITIS Priority: Low Current Visit: No Qualifiers: Esophagitis presence: esophagitis presence not specified Qualified Code(s): K21.9 - Gastro-esophageal reflux disease without esophagitis (10) IBS (irritable bowel syndrome) SNOMED Code(s): 64256061 Code(s): K58.9 - IRRITABLE BOWEL SYNDROME WITHOUT DIARRHEA Priority: Low Current Visit: No Qualifiers: Irritable bowel syndrome type: unspecified Qualified Code(s): K58.9 - Irritable bowel syndrome without diarrhea (11) Endometriosis SNOMED Code(s): 787238327 Code(s): N80.9 - ENDOMETRIOSIS, UNSPECIFIED Priority: Low Current Visit: No (12) Rheumatoid arthritis SNOMED Code(s): 02989810 Code(s): M06.9 - RHEUMATOID ARTHRITIS, UNSPECIFIED Priority: Medium Current Visit: No Qualifiers: Rheumatoid arthritis location: unspecified site Rheumatoid factor presence: unspecified presence Qualified Code(s): M06.9 - Rheumatoid arthritis, unspecified (13) Polyarthralgia SNOMED Code(s): 06725790 Code(s): M25.50 - PAIN IN UNSPECIFIED JOINT Priority: Medium Current Visit: No (14) Chronic headaches SNOMED Code(s): 322231052 Code(s): R51 - HEADACHE Priority: Low Current Visit: No Qualifiers: Headache type: unspecified Intractability: not intractable Qualified Code(s): R51 - Headache (15) Obesity SNOMED Code(s): 197983716, 287419547 Code(s): E66.9 - OBESITY, UNSPECIFIED Priority: Low Current Visit: No Qualifiers: Obesity type: unspecified obesity type Obesity classification: adult class 1 (BMI 30 - 34.9) Serious obesity comorbidity presence: unspecified whether serious comorbidity present Body mass index: BMI 31.0-31.9 Qualified Code(s): E66.9 - Obesity, unspecified; Z68.31 - Body mass index (BMI) 31.0-31.9, adult (16) Vitamin D deficiency SNOMED Code(s): 96026340 Code(s): E55.9 - VITAMIN D DEFICIENCY, UNSPECIFIED Priority: Low Current Visit: No (17) Positive result for methicillin resistant Staphylococcus aureus (MRSA) s creening SNOMED Code(s): 456235170 Code(s): Z22.322 - CARRIER OR SUSPECTED CARRIER OF METHICILLIN RESIS STAPH Priority: Medium Current Visit: Yes Problem List Initiated/Reviewed/Updated: Yes My Orders Last 24 Hours: My Active Orders 09/02/19 14:33 Isolation [COMM] Routine Plan: I/P: Acute: S/P right total knee arthroplasty - post-operative day 1 -DVT prophylaxis and pain management per primary care team -PT/OT -IS/RT -Monitor oxygen saturation -Titrate oxygen as needed -Home medications reviewed -Vital signs stable -Monitor labs -Pre-operative Hgb was 14.0; Now 11.1 -Pre-operative GFR was >60; Now 58 -Pre-operative BUN was 20; Now 18 -Pre-operative A1C was 6.2% -Pre-operative echo showed EF of >70% Osteoarthritis of right knee -Pain management per primary care team Positive MRSA screen -Contact precautions Chronic: Depression GERD IBS Endometriosis HLD HTN Headaches Polyarthralgia Pre-Diabetic Right pulmonary nodule Vitamin D Deficiency Positive MRSA screen Chronic neck pain RA Obesity Plan: CM for discharge planning GI prophylaxis Home medications as indicated Other orders as listed above Routine AM labs She is a full code. Her PCP is Dr. Holder From a hospitalist standpoint Malorie is doing well. She is off of oxygen and has urinated. She has been up ambulating and working with therapies. Pain is controlled. Her labs and vital signs remain stable. She is cleared for discharge pending primary team and PT/OT agreement. Thank you for allowing us to participate in the care of this patient!!
--- NOTE | 2019-09-03 07:58 | PCM48HPAN ---
Post Anesthesia Note - EVALUATION WITHIN 48HRS OF ANESTHETIC Vital Signs in Normal Range: Yes Patient Participated in Evaluation: Yes Respiratory Function Stable: Yes Airway Patent: Yes Cardiovascular Function Stable: Yes Hydration Status Stable: Yes Pain Control Satisfactory: Yes Nausea and Vomiting Control Satisfactory: Yes Mental Status Recovered: Yes Vital Signs: Last Vital Signs Temp 36.6 C 09/03/19 06:15 Pulse 76 09/03/19 06:15 Resp 18 09/03/19 06:15 BP 121/82 09/03/19 06:15 Pulse Ox 95 09/03/19 06:15
[2019-09-03 08:18] VITALS: PULSE 79
[2019-09-03] MEDS ORDERED: FLUTICASONE PROPIONATE NASBOTH SCH (09:00)
[2019-09-03] MEDS ORDERED: Lisinopril 10 MG Tab PO SCH (09:00)
[2019-09-03] MEDS ORDERED: Pantoprazole 40 MG Tab.CR PO SCH (09:00)
[2019-09-03] MEDS ORDERED: Loratadine 10 MG Tab PO SCH (09:00)
[2019-09-03] MEDS ORDERED: Cholecalciferol (Vitamin D3) 25 MCG Tab PO SCH (09:00)
[2019-09-03] MEDS ORDERED: cloNIDine 0.1 MG Tab PO SCH (09:00)
[2019-09-03] MEDS ORDERED: Aspirin 325 MG Tab.EC PO SCH (09:00)
[2019-09-03] MEDS ORDERED: FLUoxetine 20 MG Cap PO SCH (09:00)
--- NOTE | 2019-09-03 09:22 | PCM.DCSUM1 ---
Discharge Summary - Hospital Course Brief History: Malorie is a 53 yo female who underwent right TKA with left first MTP joint cortisone injection with Dr. Cho on 09-02-2019. The procedure was completed under spinal anesthesia with sedation. A post-operative adductor canal block was also provided. The pt tolerated the procedure well and was admitted to the Medical-Surgical Unit. Medical management was provided by the Hospitalist service. The pt's Hospital course was uneventful. The pt's Hgb on POD#1 was 11.1. On POD#1, 325mg ASA BID was initiated for VTE prophylaxis. SCDs and TEDs were also ordered. A Mepilex dressing was placed at the incision site at the time of surgery and remained clean and dry. The pt participated in P.T. and O.T. and progressed well. The pt was allowed to WBAT and used a FWW for mobility. On POD#1, the pt was deemed appropriate to discharge to home with her family. - Discharge Data Discharge Date: 09/03/19 Discharge Disposition: Home, Self-Care 01 Condition: Good - Referral to Home Health Primary Care Physician: Jina Holder MD - Patient Summary/Data Consults: Consultations 09/02/19 06:48 Consult to Physician [CONS] Routine OT Evaluation and Treatment [CONS] Routine PT Evaluation and Treatment [CONS] Routine - Patient Instructions Diet: Usual Diet as Tolerated Activity: Apply Ice, As Tolerated, Elevate Extremity, Full Weight Bearing Driving: Do Not Drive Showering/Bathing: May Shower Wound/Incision Care: Keep Operative Site/Wound Site Clean and Dry, Do NOT Change Dressing Notify Provider of: Fever, Increased Pain, Swelling and Redness, Drainage, Nausea and/or Vomiting Other/Special Instructions: Please get up and moving around EVERY HOUR while awake. This helps to prevent blood clots. Please use your walker and have help with mobility as needed. Take a short walk in your home every hour while awake. Please take 325mg aspirin TWICE daily. The aspirin is being used for blood clot prevention and not for pain management so please do not miss a dose of the medication. You could use a medication like Pepcid or Tagamet and a medication like Prilosec or Nexium to protect your stomach while you are using the aspirin. At home, please complete the exercises that you learned during the Hospital stay. Schedule for physical therapy. Use the pain medication as needed. The medication may cause drowsiness and constipation. Contact your primary care provider for instructions if you are constipated. You may use a stool softener like docusate sodium or Colace 100mg twice daily and/or a laxative like Miralax daily for constipation. Increase your water and fiber intake while you are using the pain medication. Discontinue use of the pain medication as soon as able. Please do not use other medications that may cause drowsiness (other pain medications, anxiety pills, cold medications, sleeping pills, etc) while using the prescription pain medication. Do not use alcohol while using the pain medication. You may use acetaminophen or Tylenol for pain management, however, please ensure you are not using over 4000 mg or 4 grams of acetaminophen per day from all sources. Your pain medication has 325mg of acetaminophen per tablet. At this time, please do not use ibuprofen (Motrin, Advil) or naproxen (Aleve) for pain management as you are using the aspirin. When the aspirin course is completed in 4 to 6 weeks, you could use ibuprofen or naproxen for pain management (if this is allowed by your primary care provider). Wear the JACQUELINE hose during the day and you may remove these at night. Elevate the limb to decrease swelling. Place ice to the area often. Place a towel between your skin and the blue pad. Use the incentive spirometer often. Take deep breaths throughout the day. Please keep the dressing in place until follow-up. Notify the Clinic if the dressing becomes saturated. Increase your protein intake while you are healing. If you have diabetes, please closely monitor your blood sugars and notify your primary care provider with abnormal values. Elevated blood sugars increases the risk of infection. You may resume use of herbal/OTC medications (turmeric, cinnamon, etc.) in 2 weeks. Call the Clinic with questions or concerns - [phone] and leave a message for the nurse. - Discharge Plan *PRESCRIPTION DRUG MONITORING PROGRAM REVIEWED*: No *COPY OF PRESCRIPTION DRUG MONITORING REPORT IN PATIENT KATEY: No Prescriptions/Med Rec: Aspirin [Ecotrin EC] 325 mg PO BID #84 tab.ec Cyclobenzaprine [Flexeril] 10 mg PO BID PRN #40 tablet PRN Reason: Spasms Acetaminophen/oxyCODONE [Percocet 325-5 MG] 1 - 2 tab PO Q4H PRN #60 tablet PRN Reason: Pain Home Medications: Home Meds Cetirizine [ZyrTEC] 10 mg PO DAILY 06/14/15 [History] FLUoxetine [PROzac] 20 mg PO DAILY 06/14/15 [History] Fluticasone Propionate [Flonase] 2 sprays NASBOTH DAILY 06/14/15 [History] Lisinopril [Prinivil] 10 mg PO DAILY 06/14/15 [History] Cholecalciferol (Vitamin D3) [Vitamin D3] 2,000 unit PO DAILY 08/30/19 [History] Pantoprazole Sodium [Protonix] 40 mg PO DAILY 08/30/19 [History] amLODIPine Besylate [Amlodipine Besylate] 5 mg PO BID 08/30/19 [History] cloNIDine HCL [Clonidine HCl] 0.5 mg PO DAILY 08/30/19 [History] metFORMIN [Glucophage] 500 mg PO BID 08/30/19 [History] Acetaminophen/oxyCODONE [Percocet 325-5 MG] 1 - 2 tab PO Q4H PRN #60 tablet 09/03/19 [Rx] Aspirin [Ecotrin EC] 325 mg PO BID #84 tab.ec 09/03/19 [Rx] Cyclobenzaprine [Flexeril] 10 mg PO BID PRN #40 tablet 09/03/19 [Rx] Famotidine [Pepcid] 20 mg PO Q12H tablet 09/03/19 [Rx] Magnesium Hydroxide [Milk of Magnesia] 30 ml PO BID PRN cup 09/03/19 [Rx] Sennosides [Senna] 8.6 mg PO BID PRN tablet 09/03/19 [Rx] bisacodyL [Dulcolax] 5 mg PO DAILY PRN tablet 09/03/19 [Rx] Patient Handouts: MRSA Infection, Self-Care, Adult, Total Knee Replacement, E asy-to-Read Referrals: Abby Vera PA-C [Physician Bed And Breakfast Operator] - (Please follow up with Abby Vera PA-C on the following dates- September 09 at 11:30, September 16 at 10:15, and October 14 at 11:30.) - Discharge Summary/Plan Comment DC Time >30 min.: No - Patient Data Vitals - Most Recent: Last Vital Signs Temp 98.2 F 09/03/19 07:37 Pulse 79 09/03/19 07:37 Resp 20 09/03/19 07:37 BP 116/66 09/03/19 07:37 Pulse Ox 96 09/03/19 07:37 Weight - Most Recent: 185 lb I&O - Last 24 hours: Intake & Output 09/02/19 09/03/19 09/03/19 22:59 06:59 14:59 Intake Total 240 900 Output Total 1600 Balance 240 -700 Lab Results - Last 24 hrs: Laboratory Results - last 24 hr 09/02/19 09/03/19 09/03/19 Range/Units 09:50 05:17 05:17 WBC 9.25 (3.98-10.04) K/mm3 RBC 3.59 L (3.98-5.22) M/mm3 Hgb 11.1 L D (11.2-15.7) gm/dl Hct 34.1 (34.1-44.9) % MCV 95.0 H (79.4-94.8) fl MCH 30.9 (25.6-32.2) pg MCHC 32.6 (32.2-35.5) g/dl RDW Std Deviation 44.7 (36.4-46.3) fL Plt Count 207 D (182-369) K/mm3 MPV 10.9 (9.4-12.3) fl Sodium 139 (136-145) mEq/L Potassium 3.9 (3.5-5.1) mEq/L Chloride 102 (98-107) mEq/L Carbon Dioxide 27 (21-32) mEq/L Anion Gap 13.9 (5-15) BUN 18 (7-18) mg/dL Creatinine 1.0 (0.55-1.02) mg/dL Est Cr Clr Drug Dosing 55.54 mL/min Estimated GFR (MDRD) 58 (>60) mL/min BUN/Creatinine Ratio 18.0 (14-18) Glucose 128 H (74-106) mg/dL POC Glucose 122 H (70-105) mg/dL Calcium 8.6 (8.5-10.1) mg/dL Total Bilirubin 0.2 (0.2-1.0) mg/dL AST 27 (15-37) U/L ALT 41 (14-59) U/L Alkaline Phosphatase 55 (46-116) U/L Total Protein 6.6 (6.4-8.2) g/dl Albumin 3.3 L (3.4-5.0) g/dl Globulin 3.3 gm/dL Albumin/Globulin Ratio 1.0 (1-2) Med Orders - Current: Current Medications Amlodipine Besylate (Norvasc) 5 mg PO BID [facility] Last Admin: 09/02/19 20:20 Dose: 5 mg Documented by: Aspirin (Ecotrin) 325 mg PO BID [facility] Bisacodyl (Dulcolax) 5 mg PO DAILY PRN PRN Reason: Constipation Cholecalciferol (Vitamin D3) 50 mcg PO DAILY [facility] Clonidine HCl (Catapres) 0.05 mg PO DAILY [facility] Cyclobenzaprine HCl (Flexeril) 10 mg PO TID PRN PRN Reason: Spasms Last Admin: 09/03/19 02:12 Dose: 10 mg Documented by: Fluoxetine HCl (Prozac) 20 mg PO DAILY [facility] Cefazolin Sodium/Dextrose 2 gm (/ Premix) 50 mls @ 100 mls/hr IV Q8H [facility] Stop: 09/03/19 10:59 Last Admin: 09/03/19 02:11 Dose: 100 mls/hr Documented by: Ketorolac Tromethamine (Toradol) 15 mg IVPUSH Q6H PRN PRN Reason: Pain Last Admin: 09/03/19 06:11 Dose: 15 mg Documented by: Loratadine (Claritin) 10 mg PO DAILY [facility] Magnesium Hydroxide (Milk Of Magnesia) 30 ml PO BID PRN PRN Reason: Constipation Morphine Sulfate (Morphine) 2 mg IVPUSH Q2H PRN PRN Reason: Breakthrough Pain Naloxone HCl (Narcan) 0.1 mg IVPUSH Q5M PRN PRN Reason: Oversedation Non-Formulary Medication (Fluticasone Propionate [Flonase]) 1 sprays NASBOTH DAILY [facility] Nystatin (Nystop) 0 gm TOP QID [facility] Last Admin: 09/03/19 02:13 Dose: 1 applic Documented by: Ondansetron HCl (Zofran) 4 mg IVPUSH Q6H PRN PRN Reason: Nausea/Vomiting Last Admin: 09/02/19 14:11 Dose: 4 mg Documented by: Oxycodone/Acetaminophen (Percocet 325-5 Mg) 1 - 2 tab PO Q4H PRN PRN Reason: Pain Last Admin: 09/03/19 06:10 Dose: 2 tab Documented by: Pantoprazole Sodium (Protonix) 40 mg PO DAILY [facility] Senna (Senna) 8.6 mg PO BID PRN PRN Reason: Constipation Discontinued Medications Acetaminophen (Tylenol) 975 mg PO NOW STA Stop: 09/02/19 09:53 Last Admin: 09/02/19 10:07 Dose: 975 mg Documented by: Bupivacaine HCl (Sensorcaine-Mpf 0.25%) Confirm Administered Dose 40 ml .ROUTE .STK-MED ONE Stop: 09/02/19 09:13 Last Admin: 09/02/19 11:55 Dose: 32 ml Documented by: Cefazolin Sodium (Ancef) Confirm Administered Dose 2 gm .ROUTE .STK-MED ONE Stop: 09/02/19 09:13 Cefazolin Sodium (Ancef) Confirm Administered Dose 2 gm .ROUTE .STK-MED ONE Stop: 09/02/19 10:16 Last Admin: 09/02/19 11:47 Dose: 2 gm Documented by: Morphine Sulfate 8 mg/Epinephrine HCl 0.3 mg/Cefuroxime Sodium 750 mg/Ketorolac Tromethamine 30 mg/Sodium Chloride 7.9 ml 0 mg .XX ONETIME ONE Stop: 09/02/19 09:01 Last Admin: 09/02/19 11:56 Dose: 788.3 mg Documented by: Diphenhydramine HCl (Benadryl) Confirm Administered Dose 50 mg .ROUTE .STK-MED ONE Stop: 09/02/19 09:53 Diphenhydramine HCl (Benadryl) 25 mg PO ONETIME ONE Stop: 09/02/19 20:12 Last Admin: 09/02/19 20:27 Dose: 25 mg Documented by: Ephedrine Sulfate (Ephedrine 25 Mg/5 Ml Syringe) Confirm Administered Dose 25 mg IV .STK-MED ONE Stop: 09/02/19 10:46 Famotidine (Pepcid) 20 mg PO Q12H [facility] Last Admin: 09/02/19 13:48 Dose: Not Given Documented by: Famotidine (Pepcid) 20 mg PO Q12H [facility] Last Admin: 07/13/20 20:19 Dose: 20 mg Documented by: Fentanyl (Sublimaze) Confirm Administered Dose 100 mcg .ROUTE .STK-MED ONE Stop: 09/02/19 10:12 Fentanyl (Sublimaze) 100 mcg IVPUSH ONETIME PRN PRN Reason: Pain Stop: 09/02/19 14:00 Hydromorphone HCl (Dilaudid) 0.5 mg IVPUSH ONETIME PRN PRN Reason: Pain (severe 7-10) Stop: 09/02/19 14:00 Lactated Ringer's (Ringers, Lactated) 1,000 mls @ 125 mls/hr IV ASDIRECTED MARCELLE Stop: 08/26/19 23:00 Lactated Ringer's (Ringers, Lactated) 1,000 mls @ 125 mls/hr IV ASDIRECTED MARCELLE Stop: 09/02/19 23:00 Last Admin: 09/02/19 14:07 Dose: 125 mls/hr Documented by: Vancomycin HCl 1.5 gm/ Sodium (Chloride) 500 mls @ 250 mls/hr IV ONETIME ONE Stop: 09/02/19 11:59 Last Admin: 09/02/19 10:13 Dose: 250 mls/hr Documented by: Lactated Ringer's (Ringers, Lactated) Confirm Administered Dose 1,000 mls @ as directed .ROUTE .STK-MED ONE Stop: 09/02/19 10:34 Lidocaine/Sodium Bicarbonate (Buffered Lidocaine 1% In Ns 8.4%) 0.25 ml IDERM ONETIME PRN PRN Reason: Prior to IV Start Stop: 08/26/19 18:00 Lidocaine/Sodium Bicarbonate (Buffered Lidocaine 1% In Ns 8.4%) 0.25 ml IDERM ONETIME PRN PRN Reason: Prior to IV Start Stop: 09/02/19 18:00 Last Admin: 09/02/19 08:40 Dose: 0.25 ml Documented by: Lisinopril (Prinivil) 10 mg PO DAILY [facility] Midazolam HCl (Versed 1 Mg/Ml) Confirm Administered Dose 2 mg .ROUTE .STK-MED ONE Stop: 09/02/19 10:12 Mupirocin (Bactroban Oint) gm TOP ASDIRECTED [facility] Nystatin (Nystatin Crm) 0 gm TOP TID MARCELLE Last Admin: 09/02/19 21:47 Dose: Not Given Documented by: Oxycodone HCl (Oxycontin) 10 mg PO ONETIME STA Stop: 09/02/19 09:53 Last Admin: 09/02/19 10:07 Dose: 10 mg Documented by: Pregabalin (Lyrica) 50 mg PO ONETIME STA Stop: 09/02/19 09:52 Last Admin: 09/02/19 14:15 Dose: Not Given Documented by: Pregabalin (Lyrica) 75 mg PO ONETIME ONE Stop: 09/02/19 10:16 Pregabalin (Lyrica) 50 mg PO ONETIME ONE Stop: 09/02/19 10:16 Last Admin: 09/02/19 10:07 Dose: 50 mg Documented by: Propofol (Diprivan 20 Ml) Confirm Administered Dose 600 mg .ROUTE .STK-MED ONE Stop: 09/02/19 10:12 Propofol (Diprivan 20 Ml) Confirm Administered Dose 200 mg .ROUTE .STK-MED ONE Stop: 09/02/19 11:40 Ropivacaine (Naropin 0.5%) Confirm Administered Dose 30 ml .ROUTE .STK-MED ONE Stop: 09/02/19 12:31 Sodium Chloride (Saline Flush) 10 ml FLUSH ASDIRECTED PRN PRN Reason: Keep Vein Open Stop: 08/26/19 18:00 Sodium Chloride (Saline Flush) 10 ml FLUSH ASDIRECTED PRN PRN Reason: Keep Vein Open Stop: 09/02/19 18:00 Tranexamic Acid (Cyklokapron) Confirm Administered Dose 1,000 mg .ROUTE .STK-MED ONE Stop: 09/02/19 09:13 Last Admin: 09/02/19 11:58 Dose: 1,000 mg Documented by: Triamcinolone Acetonide (Kenalog-40) Confirm Administered Dose 120 mg .ROUTE .STK-MED ONE Stop: 09/02/19 09:13 Vancomycin HCl (Vancomycin) Confirm Administered Dose 1 gm .ROUTE .STK-MED ONE Stop: 09/02/19 09:13 Last Admin: 09/02/19 11:57 Dose: 1 gm Documented by:
[2019-09-03] MEDS: amLODIPine 5 MG Tab PO SCH (10:00)
[2019-09-03 10:04] VITALS: BP 116/75
--- NOTE | 2019-09-09 07:35 | PCM.OPNOTE ---
- General Post-Op/Procedure Note Date of Surgery/Procedure: 09/02/19 Operative Procedure(s): right total knee arthroplasty with left foot first MTP joint injection Pre Op Diagnosis: right knee osteoarthritis with left first MTP joint arthritis Post-Op Diagnosis: Same Anesthesia Technique: Local, MAC, Spinal Primary Surgeon: Peter Cho Anesthesia Provider: Keanu Mckeon Cooky Machine Operator: Abby Vera Cooky Machine Operator: Jen Kaiser EBL in mLs: 450 Complications: None Condition: Good Free Text/Narrative:: 4 femur 3 tibia 9mm 29x9
--- NOTE | 2019-09-09 08:15 | OR ---
DATE OF OPERATION: 09/02/2019 SURGEON: Peter Cho MD OPERATION PERFORMED: Right total knee arthroplasty with left foot 1st MTP joint injection. PREOPERATIVE DIAGNOSIS: Right knee osteoarthritis with left 1st MTP joint arthritis. POSTOPERATIVE DIAGNOSIS: Right knee osteoarthritis with left 1st MTP joint arthritis. ANESTHESIA: Local MAC with spinal. ANESTHESIA PROVIDER: Keanu Mckeon CRNA. ASSISTANTS: Abby Vera PA-C, and Jen Kaiser LPN. ESTIMATED BLOOD LOSS: 450 mL. COMPLICATIONS: None. CONDITION: Stable. IMPLANT: 1. June size 4 press-fit CR femur. 2. June size 3 press-fit tibial base plate. 3. Parker size 3, 9 mm CS polyethylene insert. 4. Parker size 29 x 9 mm press-fit asymmetric patella. DESCRIPTION OF PROCEDURE: The patient was identified in the preop holding area. Proper site was marked and identified by the surgeon. The patient was taken back to the operating theater. After adequate anesthesia, the patient's right lower extremity had a nonsterile tourniquet applied and it was sterilely prepped and draped in the usual sterile fashion. OR time-out was performed. The patient received 2 g IV Ancef. At this time, the right lower extremity was exsanguinated. Tourniquet was insufflated to 300 mmHg. Standard medial parapatellar incision was made. Medial parapatellar arthrotomy was created. Deep fibers of the MCL were raised and anterior fat pad was resected. At this time, attention was turned to the patella. Patella measured 21, it was resected to a 13 for 29 x 9 mm patella. Drill holes were then drilled and found to be in adequate position. The drill was then drilled in the distal femur and the intramedullary distal femoral cutting guide was then placed. 8 mm was resected off the distal femur and was found to be an adequate resection. Sizing guide was placed. It was found to be a size 4 press-fit CR femur that was shown on the implant record at the beginning of this dictation. The drill holes were drilled for the epicondylar axis using Whitesides line and epicondyles as reference. At this time, the 4-in- 1 cutting block was placed. An anterior posterior and anterior and posterior chamfer cuts were then completed. Attention was turned to the tibia. The posterior medial lateral retractors were placed. The extramedullary tibial guide was placed. It was placed in the old footprint of the ACL. It was aligned with the center of the ankle and 0 degrees of slope, 9 mm was then resected off the unaffected side. There was found to be an acceptable reduction. At this time, posterior osteophytes were removed along with medial and lateral meniscus. A trial implant was placed with a correct sized tibia that was mentioned at the beginning of the dictation. A Parker size 3, 9 mm CS polyethylene insert was then placed. The patient's knee was brought through range of motion. The patella was tracking centrally and was stable to varus and valgus stress. Alignment was found to be roughly at 0 degrees. The tibia was stamped and drilled in proper rotation. The universal tibial base plate was impacted in place. Next, the June size 4 press-fit CR femur impacted into place and the Parker size 3, 9 mm CS polyethylene insert was placed. The patient's knee was brought into full extension. The patella was then press-fit in place at this time. Tourniquet was deflated. One liter dilute Betadine solution was irrigated through the knee along with 3 L of pulse lavage irrigation with Ancef. Periarticular injection was then completed. The patient's knee was brought through a range of motion. Knee was found to be stable to varus valgus stress, the patella was tracking centrally with full range of motion. At this time, a #2 barbed suture was used for closure of the medial parapatellar arthrotomy. Topical tranexamic acid was placed. 2-0 Vicryl was used subcutaneously, Prineo was used for the skin. The patient tolerated the procedure well and was sent to the PACU in stable condition. After this was completed, under sterile technique 1 mL of 40 mg Kenalog and 1 mL of 0.25% Marcaine were injected to the left foot, 1st MTP joint. The patient tolerated all the procedures well. DANIELLE /[id number] ADELIA
== END 2019-09-03 12:39 | disposition home or self-care (01) | DRG 302 ==
LOC: JD.SDS 08:55 → JD.MS 08:56 → JD.OB 09:02
PROVIDERS: ADMIT Orthopaedic Surgery; ATTEND Orthopaedic Surgery
PROC: 3E0U3GC Introduction of Other Therapeutic Substance into Joints, Percutaneous Approach (ICD-10-PCS; principal; 2019-09-02)
PROC: 0SRC0JA Replacement of Right Knee Joint with Synthetic Substitute, Uncemented, Open Approach (ICD-10-PCS; 2019-09-02)
DX: M17.11 Unilateral primary osteoarthritis, right knee (principal); R73.03 Prediabetes; E78.5 Hyperlipidemia, unspecified; R91.1 Solitary pulmonary nodule; I10 Essential (primary) hypertension; Z11.59 Encounter for screening for other viral diseases; K21.9 Gastro-esophageal reflux disease without esophagitis; K58.9 Irritable bowel syndrome, unspecified; N80.9 Endometriosis, unspecified; G89.29 Other chronic pain; F32.89 Other specified depressive episodes; M54.2 Cervicalgia; M06.9 Rheumatoid arthritis, unspecified; E55.9 Vitamin D deficiency, unspecified; M25.50 Pain in unspecified joint; R51 Headache; E66.9 Obesity, unspecified; Z22.322 Carrier or suspected carrier of Methicillin resistant Staphylococcus aureus; Z68.31 Body mass index [BMI] 31.0-31.9, adult; Z79.84 Long term (current) use of oral hypoglycemic drugs; Z79.899 Other long term (current) drug therapy; Z87.891 Personal history of nicotine dependence; Z88.8 Allergy status to other drugs, medicaments and biological substances
CPT/HCPCS: 01402; 36415; 64450; 73560-26-RT; 73560-RT; 80053; 82962; 85027; 87641; 97110-GP; 97116-GP; 97161-GP; 97165-GO; 97535-GO; 99222; 99232; A9270-GY; C1776; J0171; J0690; J0697; J1200; J1885; J2250; J2270; J2405; J2704; J2795; J3010; J3301; J3370; J3490; J7040; J7120; U0002

== ENCOUNTER 2019-09-05 17:58 | Emergency (ER) | payer BC ==
[2019-09-05 18:12] VITALS: BP 140/84; PULSE 106
[2019-09-05] MEDS ORDERED: HYDROmorphone 0.5 MG/0.5 ML Syringe IM ONE (19:09)
--- NOTE | 2019-09-05 19:17 | EDM.PDOC ---
ED HPI GENERAL MEDICAL PROBLEM - General Chief Complaint: Lower Extremity Injury/Pain Stated Complaint: PAIN/SWELLING POST R KNEE SURGERY Time Seen by Provider: 09/05/19 18:49 Source of Information: Reports: Patient, RN Notes Reviewed History Limitations: Reports: No Limitations - History of Present Illness INITIAL COMMENTS - FREE TEXT/NARRATIVE: Patient is a 53-year-old female who presents to the ED for the evaluation today of her painful/swollen right knee. Patient notes she had a total knee replacement done on 09/02/2019, by Dr. Cho in this facility. She states she spe nt 1 night in the hospital, and was discharged home Monday with no complications noted. Patient states that while being home, she is noticed a decline in how she is felt, and not act active as she was when she was in the hospital. She does note a little bit more swelling to the leg, with increased pain. Patient has been taking the Percocet tablets as previously prescribed, but does not seem to think they have been doing much for the pain. Patient states she is spiking a slight temperature, and did take Tylenol for this. Patient appreciates that she has had a loss of range of motion in the knee as well, and states that it is very hard to move her knee without much assistance from her hands and or other leg at all. Patient states she is taking aspirin on a daily basis for blood thinner, but is not on any actual blood thinners. Patient feels like there is a loss of muscle use in the leg. She is notes that is very hard to lift off the bed, still has normal range of motion of her ankle. Patient was found to be MRSA positive prior to the surgery. Again she did notice slight redness/swelling around the knee, there is slight bruising also apparent. Patient denies any cough/shortness of breath, chills, nausea/vomiting/diarrhea. Patient was checked for COVID prior to surgery and was negative. Right Knee Pain Score (Numeric/FACES): 6 - Related Data Allergies Allergy/AdvReac Type Severity Reaction Status Date / Time chlorhexidine Allergy Rash Verified 09/02/19 16:24 iodine Allergy Rash Verified 09/02/19 16:24 povidone-iodine Allergy Rash Verified 09/02/19 16:24 [From Betadine] soap [From Betadine] Allergy Rash Verified 09/02/19 16:24 Home Meds: Home Meds Cetirizine [ZyrTEC] 10 mg PO DAILY 06/14/15 [History] FLUoxetine [PROzac] 20 mg PO DAILY 06/14/15 [History] Fluticasone Propionate [Flonase] 2 sprays NASBOTH DAILY PRN 06/14/15 [History] Lisinopril [Prinivil] 10 mg PO DAILY 06/14/15 [History] Cholecalciferol (Vitamin D3) [Vitamin D3] 2,000 unit PO DAILY 08/30/19 [History] Pantoprazole Sodium [Protonix] 40 mg PO DAILY 08/30/19 [History] amLODIPine Besylate [Amlodipine Besylate] 5 mg PO BID 08/30/19 [History] cloNIDine HCL [Clonidine HCl] 0.05 mg PO DAILY 08/30/19 [History] metFORMIN [Glucophage] 500 mg PO BID 08/30/19 [History] Acetaminophen/oxyCODONE [Percocet 325-5 MG] 1 - 2 tab PO Q4H PRN #60 tablet 09/03/19 [Rx] Aspirin [Ecotrin EC] 325 mg PO BID #84 tab.ec 09/03/19 [Rx] Cyclobenzaprine [Flexeril] 10 mg PO BID PRN #40 tablet 09/03/19 [Rx] Sennosides [Senna] 8.6 mg PO BID PRN tablet 09/03/19 [Rx] bisacodyL [Dulcolax] 5 mg PO DAILY PRN tablet 09/03/19 [Rx] Past Medical History HEENT History: Reports: Allergic Rhinitis, Impaired Vision, Sinusitis Cardiovascular History: Reports: High Cholesterol, Hypertension Respiratory History: Reports: SOB, Other (See Below) Other Respiratory History: right pulmonary nodule-benign Gastrointestinal History: Reports: Colon Polyp, GERD, Irritable Bowel Syndrome Genitourinary History: Reports: Other (See Below) Other Genitourinary History: nephrolithiasis DIRECTOR LEARNING AND DEVELOPMENT History: Reports: , Other (See Below) Other DIRECTOR LEARNING AND DEVELOPMENT History: hot flashes, endometriosis, endometrial ablation Musculoskeletal History: Reports: Neck Pain, Chronic, RA, Other (See Below) Other Musculoskeletal History: polyarthralgia, ACL sprain, right knee hemarthosis Neurological History: Reports: Headaches, Chronic, Other (See Below) Other Neuro History: cervical spine herniated disc Psychiatric History: Reports: Depression Endocrine/Metabolic History: Reports: Obesity/BMI 30+, Vitamin D Deficiency Other Endocrine/Metabolic History: prediabetic Hematologic History: Reports: None Immunologic History: Reports: None Oncologic (Cancer) History: Reports: None Dermatologic History: Reports: Other (See Below) Other Dermatologic History: lipoma - Infectious Disease History Infectious Disease History: Reports: MRSA Other Infectious Disease History: found in nares prior too surgery - Past Surgical History Head Surgeries/Procedures: Reports: None HEENT Surgical History: Reports: Naso-Sinus Surgery, Oral Surgery Cardiovascular Surgical History: Reports: None Respiratory Surgical History: Reports: None GI Surgical History: Reports: Appendectomy, Cholecystectomy, Colonoscopy, EGD Female Surgical History: Reports: Oophorectomy, Other (See Below) Other Female Surgeries/Procedures: removal right ovarian cyst, uterine fibroid removal Endocrine Surgical History: Reports: None Neurological Surgical History: Reports: None Musculoskeletal Surgical History: Reports: None, Knee Replacement Other Musculoskeletal Surgeries/Procedures:: RTKA 09/01 Oncologic Surgical History: Reports: None Dermatological Surgical History: Reports: None Social & Family History - Family History Family Medical History: Noncontributory - Tobacco Use Smoking Status *Q: Never Smoker - Caffeine Use Caffeine Use: Reports: Coffee Other Caffeine Use: 1 coffee/day - Recreational Drug Use Recreational Drug Use: No Review of Systems - Review of Systems Review Of Systems: Comprehensive ROS is negative, except as noted in HPI. ED EXAM, GENERAL - Physical Exam Exam: See Below Exam Limited By: No Limitations General Appearance: Alert, WD/WN, No Apparent Distress Respiratory/Chest: No Respiratory Distress, Lungs Clear, Normal Breath Sounds, No Accessory Muscle Use, Chest Non-Tender Cardiovascular: Normal Peripheral Pulses, Regular Rate, Rhythm, No Murmur GI/Abdominal: Normal Bowel Sounds, Soft, Non-Tender, No Distention, No Mass Extremities: Normal Inspection, No Pedal Edema, Normal Capillary Refill (healing surgical wound to R anterior knee surface), Joint Swelling (right knee swelling), Limited Range of Motion (of right knee, states that she has lost about 50% function since discharge from hospital.), Increased Warmth (right knee), Redness (slight redness with well demarcated borders about the knee incision. The knee itself is warm to the touch). No: Debbie's Sign Neurological: Alert, Oriented, Normal Cognition, No Motor/Sensory Deficits Psychiatric: Normal Affect, Normal Mood Skin Exam: Warm, Dry, Intact, No Rash, Erythema (about the right knee/surgical incision), Wound/Incision (healing surgical incision to anterior right knee surface.) Course - Vital Signs Last Recorded V/S: Last Vital Signs Temp 98.8 F 09/05/19 18:10 Pulse 106 H 09/05/19 18:10 Resp 20 09/05/19 18:10 BP 140/84 09/05/19 18:10 Pulse Ox 90 L 09/05/19 18:10 - Orders/Labs/Meds Labs: Laboratory Tests 09/05/19 Range/Units 20:48 WBC 7.85 (3.98-10.04) K/mm3 RBC 3.53 L (3.98-5.22) M/mm3 Hgb 10.8 L (11.2-15.7) gm/dl Hct 34.2 (34.1-44.9) % MCV 96.9 H (79.4-94.8) fl MCH 30.6 (25.6-32.2) pg MCHC 31.6 L (32.2-35.5) g/dl RDW Std Deviation 45.2 (36.4-46.3) fL Plt Count 214 (182-369) K/mm3 MPV 10.7 (9.4-12.3) fl Neut % (Auto) 68.3 (34.0-71.1) % Lymph % (Auto) 16.2 L (19.3-51.7) % [place] % (Auto) 10.4 (4.7-12.5) % Eos % (Auto) 4.3 (0.7-5.8) Baso % (Auto) 0.5 (0.1-1.2) % Neut # (Auto) 5.36 (1.56-6.13) K/mm3 Lymph # (Auto) 1.27 (1.18-3.74) K/mm3 [place] # (Auto) 0.82 H (0.24-0.36) K/mm3 Eos # (Auto) 0.34 (0.04-0.36) K/mm3 Baso # (Auto) 0.04 (0.01-0.08) K/mm3 Meds: Medications Discontinued Medications Generic Name Dose Route Start Last Admin Trade Name Konstantin PRN Reason Stop Dose Admin Hydromorphone HCl 0.5 mg 09/05/19 19:09 09/05/19 19:22 Dilaudid IM 09/05/19 19:10 0.5 mg ONETIME ONE Administration - Re-Assessments/Exams Free Text/Narrative Re-Assessment/Exam: 09/05/19 19:21 Patient presents to the ED for evaluation of her painful/swollen/reddened right knee. Patient is status post total knee replacement roughly 3-4 days now. Have ordered ultrasound to evaluate for cellulitis versus DVT. 09/05/19 21:13 Patient's ultrasound demonstrates no sign of a DVT within the right leg, this is reassuring. CBC is still pending. 09/05/19 21:33 CBC demonstrates no sign of obvious infection. I did discuss the labs and ultrasound findings with Abby Vera PA-C patient, and she is glad to know that there is no sign of an infection or, and she states that they will fit her in the schedule tomorrow morning for another look at the patient's knee. I also did discuss the findings with the patient, and she was glad to know that there is no infection or blood clot. Patient states she did get pain relief from the Dilaudid. Departure - Departure Time of Disposition: 21:34 Disposition: Home, Self-Care 01 Condition: Good Clinical Impression: Redness and swelling of knee S/P total knee arthroplasty Qualifiers: Laterality: right Qualified Code(s): Z96.651 - Presence of right artificial knee joint - Discharge Information *PRESCRIPTION DRUG MONITORING PROGRAM REVIEWED*: No *COPY OF PRESCRIPTION DRUG MONITORING REPORT IN PATIENT KATEY: No Referrals: Jina Holder MD [Primary Care Provider] - Forms: ED Department Discharge Additional Instructions: You were evaluated in the ER today regarding your redness and swelling of your right knee. CBC, and ultrasound demonstrated no sign of infection or blood clot. The fever you are experiencing very well could be just from healing from the surgery. I did discuss her case with Dr. Cho's PAAbby, and she states she will have her office call you in the morning to have a clinic appointment so they can look at the need to make sure everything is healing as appropriate. If you are still having pain tonight, you may take an extra tablet of Percocet, otherwise please await their call in the morning and attend the clinic as requested by the providers. Please return to the ER at any time if your symptoms change or worsen. Sepsis Event Note (ED) - Evaluation Sepsis Screening Result: No Definite Risk - Focused Exam Vital Signs: Vital Signs Temp Pulse Resp BP Pulse Ox 09/05/19 18:10 98.8 F 106 H 20 140/84 90 L
--- NOTE | 2019-09-05 21:05 | US ---
Right lower extremity deep venous ultrasound: Duplex and color Doppler evaluation was obtained of the right common femoral, superficial femoral, popliteal, posterior tibial and peroneal veins. Left common femoral vein was also evaluated. Comparison: No previous venous imaging is available. Findings: Normal phasic flow, augmentation and compression is seen. Impression: 1. No evidence of deep venous thrombosis within the right lower extremity or within the left common femoral vein. Diagnostic code #1 This report was dictated in MDT
== END 2019-09-05 21:45 | disposition home or self-care (01) ==
LOC: JD.ED 17:58
DX: M79.89 Other specified soft tissue disorders (principal); Z96.651 Presence of right artificial knee joint; E78.00 Pure hypercholesterolemia, unspecified; F32.9 Major depressive disorder, single episode, unspecified; I10 Essential (primary) hypertension; E11.9 Type 2 diabetes mellitus without complications; K21.9 Gastro-esophageal reflux disease without esophagitis; Z68.31 Body mass index [BMI] 31.0-31.9, adult; Z88.6 Allergy status to analgesic agent; Z91.09 Other allergy status, other than to drugs and biological substances; Z88.8 Allergy status to other drugs, medicaments and biological substances; Z79.899 Other long term (current) drug therapy; Z79.82 Long term (current) use of aspirin
CPT/HCPCS: 36415; 85025; 93971; 96372; 99284; J1170; 99283

== ENCOUNTER 2022-11-01 09:22 | Day surgery (SDC) | payer BC ==
[~2022-11-01 09:22] MED LIST changes: -Bisacodyl 5 MG Tab PO PRN; -Famotidine 20 MG Tab PO SCH; -Lidocaine 1%/Sod Bicarbonate in NS 8.4% 1 ML Syringe IDERM PRN; -Magnesium Hydroxide 400 MG/5 ML Susp 30 ML Cup PO PRN; -Morphine 2 MG/ML SYRINGE IVPUSH PRN; -Naloxone 0.4 MG/ML SDV IVPUSH PRN; -Ondansetron 4 MG/2 ML SDV IVPUSH PRN; -Sennosides 8.6 MG Tab PO PRN; +Sodium Chloride 0.9% 10 ML Syringe FLUSH SCH
[2022-11-01] MEDS ORDERED: Propofol 200 MG/20 ML SDV ONE (10:46)
[2022-11-01] MEDS ORDERED: fentaNYL 100 MCG/2 ML SDV ONE (10:47)
[2022-11-01] MEDS ORDERED: Midazolam 1 MG/ML 2 ML SDV ONE (10:47)
[2022-11-01] MEDS ORDERED: Bupivacaine 0.25%/EPINEPHrine 1:200,000 30 ML SDV ONE (11:22)
[2022-11-01 13:05] VITALS: BP 134/78; PULSE 78
== END 2022-11-01 12:52 | disposition home or self-care (01) ==
LOC: JD.SDS 09:22
PROVIDERS: ATTEND Surgery
DX: K64.8 Other hemorrhoids (principal); K64.4 Residual hemorrhoidal skin tags; F32.A Depression, unspecified; K21.9 Gastro-esophageal reflux disease without esophagitis; I10 Essential (primary) hypertension; E55.9 Vitamin D deficiency, unspecified; E66.9 Obesity, unspecified; G89.29 Other chronic pain; M54.2 Cervicalgia; Z83.71 Family history of colonic polyps; Z88.8 Allergy status to other drugs, medicaments and biological substances; Z79.899 Other long term (current) drug therapy; Z79.84 Long term (current) use of oral hypoglycemic drugs; Z90.49 Acquired absence of other specified parts of digestive tract; Z98.890 Other specified postprocedural states; Z87.891 Personal history of nicotine dependence; Z80.0 Family history of malignant neoplasm of digestive organs
CPT/HCPCS: 45380; J2704; J3010; J7120; 00811; J2250; J3490

== ENCOUNTER 2024-08-19 06:15 | Day surgery (SDC) | payer BC ==
[2024-08-19] MEDS: Lactated Ringers 1,000 ML IV SCH (06:00)
[~2024-08-19 06:15] MED LIST changes: -Lactated Ringers 1,000 ML IV SCH
[2024-08-19] MEDS ORDERED: Lidocaine 2% 5 ML SDV ONE (06:32)
[2024-08-19] MEDS ORDERED: Propofol 200 MG/20 ML SDV ONE (06:32)
[2024-08-19] MEDS ORDERED: dexmedeTOMIDine HCl 200 MCG/2 ML SDV ONE (06:34)
[2024-08-19] MEDS ORDERED: ceFAZolin 2 GM Vial ONE (07:00)
[2024-08-19] MEDS: Lidocaine 1% 10 ML MDV ONE (07:13)
[2024-08-19] MEDS: Bupivacaine 0.25% 10 ML SDV ONE (07:13)
[2024-08-19 08:20] VITALS: BP 119/74; PULSE 84
== END 2024-08-19 08:15 | disposition home or self-care (01) ==
LOC: JD.SDS 06:15
PROVIDERS: ATTEND Orthopaedic Surgery
DX: G56.11 Other lesions of median nerve, right upper limb (principal); G56.01 Carpal tunnel syndrome, right upper limb; E78.00 Pure hypercholesterolemia, unspecified; E11.9 Type 2 diabetes mellitus without complications; I10 Essential (primary) hypertension; E66.3 Overweight; Z88.8 Allergy status to other drugs, medicaments and biological substances; Z79.84 Long term (current) use of oral hypoglycemic drugs; Z79.899 Other long term (current) drug therapy
CPT/HCPCS: 64721; J0665; J0690; J2003; J2704; J7120